=== PATIENT | female | born 1940 | race Caucasian/White ===

== ENCOUNTER 2017-05-04 13:12 | Inpatient (IN) | payer MEDICARE, OTHER ==
[2017-05-04] MEDS ORDERED: Sodium Chloride 0.9% 10 ML Syringe FLUSH PRN (14:14)
[2017-05-04] MEDS ORDERED: Sodium Chloride 0.9% 1,000 ML IV SCH (14:15)
[2017-05-04] MEDS ORDERED: Levofloxacin/Dextrose 5%-Water 750 MG in Premix Bag 1 BAG IV ONE (16:26)
--- NOTE | 2017-05-04 17:01 | EDM.PDOC ---
ED HPI GENERAL MEDICAL PROBLEM - General Chief Complaint: Respiratory Problem Stated Complaint: COUGH/VOMITING/WEAKNESS Time Seen by Provider: 05/04/17 13:38 Source of Information: Reports: Patient History Limitations: Reports: No Limitations - History of Present Illness INITIAL COMMENTS - FREE TEXT/NARRATIVE: The patient presents with a cough and body aches. The patient says this started about 5 days ago. She has a productive cough, fever, chills, body aches and shortness of breath. A couple days ago she had some pain in the RLQ. She vomited and that was better. She has generalized weakness and her joints ache. She did not get her flu shot. She has no abdominal pain now. She has no dysuria. She has a hoarse voice. Onset: Gradual Duration: Day(s): (5) Improves with: Reports: None Worsens with: Reports: None Associated Symptoms: Reports: Cough, Fever/Chills, Nausea/Vomiting, Shortness of Breath. Denies: Headaches Generalized Pain Score (Numeric/FACES): 10 - Related Data Allergies Allergy/AdvReac Type Severity Reaction Status Date / Time No Known Allergies Allergy Verified 05/04/17 13:34 Home Meds: Home Meds Gabapentin [Neurontin] 600 mg PO BID 05/04/17 [History] Levothyroxine [Levothroid] 137 mcg PO DAILY 05/04/17 [History] PARoxetine HCl [Paroxetine HCl] 40 mg PO BEDTIME 05/04/17 [History] Pramipexole Di-HCl [Mirapex] 0.125 mg PO BEDTIME 05/04/17 [History] Rosuvastatin [Crestor] 10 mg PO BEDTIME 05/04/17 [History] Past Medical History Musculoskeletal History: Reports: Osteoarthritis Neurological History: Reports: Neuropathy, Peripheral Endocrine/Metabolic History: Reports: Hypothyroidism - Past Surgical History GI Surgical History: Reports: Appendectomy Social & Family History - Tobacco Use Smoking Status *Q: Never Smoker ED ROS GENERAL - Review of Systems Review Of Systems: See Below Constitutional: Reports: Fever, Chills, Weakness HEENT: Reports: No Symptoms Respiratory: Reports: Shortness of Breath, Cough Cardiovascular: Reports: No Symptoms Endocrine: Reports: No Symptoms GI/Abdominal: Reports: Abdominal Pain, Nausea, Vomiting : Reports: No Symptoms Musculoskeletal: Reports: No Symptoms ED EXAM, GENERAL - Physical Exam Exam: See Below Exam Limited By: No Limitations General Appearance: Alert, No Apparent Distress Ears: Normal External Exam Nose: Normal Inspection Throat/Mouth: Other (Mild erythema) Head: Atraumatic, Normocephalic Neck: Normal Inspection Respiratory/Chest: No Respiratory Distress, Rhonchi Cardiovascular: Regular Rate, Rhythm, No Edema, No Murmur GI/Abdominal: Soft, Non-Tender, No Organomegaly, No Mass Back Exam: Normal Inspection Extremities: Normal Inspection Course - Vital Signs Last Recorded V/S: Last Vital Signs Temp 99.3 F 05/04/17 13:34 Pulse 95 05/04/17 13:34 Resp 22 H 05/04/17 13:34 BP 123/72 05/04/17 13:34 Pulse Ox 97 05/04/17 13:34 - Orders/Labs/Meds Orders: Active Orders 24 hr Category Date Time Status Cardiac Monitoring [RC] . DIRECTED Care 05/04/17 14:14 Active Oxygen Therapy [RC] PRN Care 05/04/17 14:14 Active Peripheral IV Care [RC] . DIRECTED Care 05/04/17 14:15 Active Chest 1V Frontal [CR] Stat Exams 05/04/17 14:15 Taken C-REACTIVE PROTEIN [CHEM] Stat Lab 05/04/17 15:19 Results COMPREHENSIVE METABOLIC PN,CMP [CHEM] Stat Lab 05/04/17 15:19 Results CULTURE STREP A CONFIRMATION [RM] Stat Lab 05/04/17 14:20 Results STREP SCRN A RAPID W CULT CONF [RM] Stat Lab 05/04/17 14:20 Results TROPONIN I [CHEM] Stat Lab 05/04/17 15:19 Results Levofloxacin/Dextrose 5%-Water [Levaquin in D5W 750 MG/ Med 05/04/17 16:26 Active 150 ML] 750 mg Premix Bag 1 bag IV ONETIME Sodium Chloride 0.9% [Normal Saline] 1,000 ml Med 05/04/17 14:15 Active IV ASDIRECTED Sodium Chloride 0.9% [Saline Flush] Med 05/04/17 14:14 Active 10 ml FLUSH ASDIRECTED PRN Peripheral IV Insertion Adult [OM.PC] Stat Oth 05/04/17 14:14 Ordered Medication Orders Sodium Chloride (Normal Saline) 1,000 mls @ 125 mls/hr IV ASDIRECTED BEATRIZ Last Admin: 05/04/17 15:04 Dose: 125 mls/hr Levofloxacin/Dextrose 750 mg/ (Premix) 150 mls @ 100 mls/hr IV ONETIME ONE Stop: 05/04/17 17:55 Last Admin: 05/04/17 16:52 Dose: 100 mls/hr Sodium Chloride (Saline Flush) 10 ml FLUSH ASDIRECTED PRN PRN Reason: Keep Vein Open Last Admin: 05/04/17 15:04 Dose: 10 ml Labs: Laboratory Tests 05/04/17 05/04/17 05/04/17 Range/Units 15:19 15:19 16:21 WBC 14.65 H (3.98-10.04) K/mm3 RBC 3.98 (3.98-5.22) M/mm3 Hgb 12.3 (11.2-15.7) gm/L Hct 36.8 (34.1-44.9) % MCV 92.5 (79.4-94.8) fl MCH 30.9 (25.6-32.2) pg MCHC 33.4 (32.2-35.5) g/dl RDW Std Deviation 41.5 (36.4-46.3) fL Plt Count 233 (182-369) K/mm3 MPV 9.8 (9.4-12.3) fl Neut % (Auto) 81.1 H (34.0-71.1) % Lymph % (Auto) 5.4 L (19.3-51.7) % [place] % (Auto) 12.8 H (4.7-12.5) % Eos % (Auto) 0.5 L (0.7-5.8) Baso % (Auto) 0.1 (0.1-1.2) % Neut # (Auto) 11.88 H (1.56-6.13) K/mm3 Lymph # (Auto) 0.79 L (1.18-3.74) K/mm3 [place] # (Auto) 1.87 H (0.24-0.36) K/mm3 Eos # (Auto) 0.07 (0.04-0.36) K/mm3 Baso # (Auto) 0.02 (0.01-0.08) K/mm3 Manual Slide Review Abnormal smear Sodium 131 L (136-145) mEq/L Potassium 4.0 (3.5-5.1) mEq/L Chloride 98 (98-107) mEq/L Carbon Dioxide 20 L (21-32) mEq/L Anion Gap 17.0 H (5-15) BUN 16 (7-18) mg/dL Creatinine 1.3 H (0.55-1.02) mg/dL Est Cr Clr Drug Dosing 32.85 mL/min Estimated GFR (MDRD) 40 (>60) mL/min BUN/Creatinine Ratio 12.3 L (14-18) Glucose 114 (83-115) mg/dL Calcium 8.8 (8.5-10.1) mg/dL Total Bilirubin 0.6 (0.2-1.0) mg/dL AST 19 (15-37) U/L ALT 12 L (14-59) U/L Alkaline Phosphatase 88 (46-116) U/L Troponin I < 0.017 (0.00-0.056) ng/mL Total Protein 7.4 (6.4-8.2) g/dl Albumin 2.9 L (3.4-5.0) g/dl Globulin 4.5 gm/dL Albumin/Globulin Ratio 0.6 L (1-2) Urine Color Dark yellow (Yellow) Urine Appearance Clear (Clear) Urine pH 6.0 (5.0-8.0) Ur Specific [place] > or = 1.030 (1.005-1.030) Urine Protein 3+ H (Negative) Urine Glucose (UA) Negative (Negative) Urine Ketones 1+ H (Negative) Urine Occult Blood 3+ H (Negative) Urine Nitrite Negative (Negative) Urine Bilirubin 2+ H (Negative) Urine Urobilinogen 0.2 (0.2-1.0) Ur Leukocyte Esterase Negative (Negative) Urine RBC 5-10 H (0-5) /hpf Urine WBC 5-10 H (0-5) /hpf Ur Epithelial Cells 0-5 (0-5) /hpf Urine Bacteria Moderate H (FEW) /hpf Hyaline Casts 10-20 H (0-5) /lpf Urine Mucus Moderate H (FEW) /hpf Meds: Medications Generic Name Dose Route Start Last Admin Trade Name Freq PRN Reason Stop Dose Admin Sodium Chloride 1,000 mls @ 125 mls/hr 05/04/17 14:15 05/04/17 15:04 Normal Saline IV 125 mls/hr ASDIRECTED BEATRIZ Administration Levofloxacin/Dextrose 750 mg/ 150 mls @ 100 mls/hr 05/04/17 16:26 05/04/17 16 :52 Premix IV 05/04/17 17:55 100 mls/hr ONETIME ONE Administration Sodium Chloride 10 ml 05/04/17 14:14 05/04/17 15:04 Saline Flush FLUSH 10 ml ASDIRECTED PRN Administration Keep Vein Open - Re-Assessments/Exams Free Text/Narrative Re-Assessment/Exam: 05/04/17 17:02 I ordered an IV saline lock, labs, UA, CXR, and blood cultures. Her CXR showed a RML infiltrate. Her WBC was elevated at 14.65. Her Na was a little low at 131. Her CO2 was low at 20. Her anion gap was elevated at 17. Her creatinine was elevated at 1.3. Her troponin was negative. It appears she has pneumonia. Her oxygen saturations went down to 87%. My nurse put her on oxygen. I obtained blood cultures and started levaquin 750mg IV. I feel she needs to be admitted. I called Dr Lopez and she agreed to the admission. Departure - Departure Time of Disposition: 17:10 Disposition: Admitted As Inpatient 64 Condition: Fair Clinical Impression: Pneumonia Qualifiers: Pneumonia type: due to unspecified organism Laterality: right Lung location: middle lobe of lung Qualified Code(s): J18.1 - Lobar pneumonia, unspecified organism - Discharge Information Referrals: PCP,None [Primary Care Provider] - - My Orders Last 24 Hours: My Active Orders 05/04/17 14:14 Cardiac Monitoring [RC] . DIRECTED Oxygen Therapy [RC] PRN Sodium Chloride 0.9% [Saline Flush] 10 ml FLUSH ASDIRECTED PRN Peripheral IV Insertion Adult [OM.PC] Stat 05/04/17 14:15 Peripheral IV Care [RC] . DIRECTED Chest 1V Frontal [CR] Stat Sodium Chloride 0.9% [Normal Saline] 1,000 ml IV ASDIRECTED 05/04/17 14:20 CULTURE STREP A CONFIRMATION [RM] Stat STREP SCRN A RAPID W CULT CONF [RM] Stat 05/04/17 15:19 C-REACTIVE PROTEIN [CHEM] Stat COMPREHENSIVE METABOLIC PN,CMP [CHEM] Stat TROPONIN I [CHEM] Stat 05/04/17 16:26 Levofloxacin/Dextrose 5%-Water [Levaquin in D5W 750 MG/150 ML] 750 mg Premix Bag 1 bag IV ONETIME - Assessment/Plan Last 24 Hours: My Active Orders 05/04/17 14:14 Cardiac Monitoring [RC] . DIRECTED Oxygen Therapy [RC] PRN Sodium Chloride 0.9% [Saline Flush] 10 ml FLUSH ASDIRECTED PRN Peripheral IV Insertion Adult [OM.PC] Stat 05/04/17 14:15 Peripheral IV Care [RC] . DIRECTED Chest 1V Frontal [CR] Stat Sodium Chloride 0.9% [Normal Saline] 1,000 ml IV ASDIRECTED 05/04/17 14:20 CULTURE STREP A CONFIRMATION [RM] Stat STREP SCRN A RAPID W CULT CONF [RM] Stat 05/04/17 15:19 C-REACTIVE PROTEIN [CHEM] Stat COMPREHENSIVE METABOLIC PN,CMP [CHEM] Stat TROPONIN I [CHEM] Stat 05/04/17 16:26 Levofloxacin/Dextrose 5%-Water [Levaquin in D5W 750 MG/150 ML] 750 mg Premix Bag 1 bag IV ONETIME
[2017-05-04] MEDS ORDERED: Temazepam 7.5 MG Cap PO PRN (18:33)
[2017-05-04] MEDS ORDERED: Albuterol/Ipratropium 3.0-0.5 MG/3 ML Neb Soln NEB PRN (18:34)
[2017-05-04] MEDS ORDERED: Albuterol 0.083% 2.5 MG/3 ML Neb Soln NEB PRN (18:35)
[2017-05-04] MEDS ORDERED: Codeine/guaiFENesin 100-10 MG/5 ML Syrup 5 ML Cup PO PRN (18:37)
[2017-05-04] MEDS ORDERED: Acetaminophen Soln 650 MG/20.3 ML UD Cup PO PRN (18:40)
[2017-05-04] MEDS ORDERED: Sodium Chloride 0.45% 1,000 ML IV SCH (18:45)
--- NOTE | 2017-05-04 19:05 | PCM.HP ---
H&P History of Present Illness - General Date of Service: 05/04/17 Admit Problem/Dx: Admission Diagnosis/Problem Admission Diagnosis/Problem Pneumonia Source of Information: Patient, Provider History Limitations: Reports: No Limitations - History of Present Illness Initial Comments - Free Text/Narative: 77 year old female began to experience constitutional symptoms 5 days prior to admission. She has had body aches and a productive cough. There have been no sick contacts. Additionally the patient had RUQ 1-2 days ago which has resolved. Laboratory studies document elevated WBCs, hyponatremia as well as a concentrated urine with a sp gr 1.030. CXR shows a RML infiltrate, saturation by pulse oximetry, 87% on room air. Onset of Symptoms: Reports: Gradual Symptom Onset Date: 04/29/17 Duration of Symptoms: Reports: Day(s):, Getting Worse Location: Reports: Chest, Generalized Severity: Moderate Improves with: Reports: Medication Worsens with: Reports: None Associated Symptoms: Reports: cough w sputum, Malaise, Nausea/Vomiting, Shortness of Breath, Weakness Generalized Pain Score (Numeric/FACES): 10 - Related Data Allergies/Adverse Reactions: Allergies Allergy/AdvReac Type Severity Reaction Status Date / Time No Known Allergies Allergy Verified 05/04/17 13:34 Home Medications: Home Meds Gabapentin [Neurontin] 600 mg PO BID 05/04/17 [History] Levothyroxine [Levothroid] 137 mcg PO DAILY 05/04/17 [History] PARoxetine HCl [Paroxetine HCl] 40 mg PO BEDTIME 05/04/17 [History] Pramipexole Di-HCl [Mirapex] 0.125 mg PO BEDTIME 05/04/17 [History] Rosuvastatin [Crestor] 10 mg PO BEDTIME 05/04/17 [History] Past Medical History HEENT History: Reports: Cataract Gastrointestinal History: Reports: None 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 OB/BYN History: hysterectomy Musculoskeletal History: Reports: Osteoarthritis Neurological History: Reports: Neuropathy, Peripheral, TIA Endocrine/Metabolic History: Reports: Hypothyroidism - Infectious Disease History Infectious Disease History: Reports: Chicken Pox, MRSA, Shingles - Past Surgical History HEENT Surgical History: Reports: Cataract Surgery GI Surgical History: Reports: Appendectomy, Other (See Below) Other GI Surgeries/Procedures: stomach ulcers taken out Endocrine Surgical History: Reports: None Musculoskeletal Surgical History: Reports: Knee Replacement, Shoulder Replacement, Shoulder Surgery, Other (See Below) Other Musculoskeletal Surgeries/Procedures:: Elbow, Neck, Back Social & Family History - Family History Cardiac: Reports: CT Respiratory: Reports: Asthma OBGYN: Reports: Musculoskeletal: Reports: Osteoporosis Oncologic: Reports: Bladder - Tobacco Use Smoking Status *Q: Never Smoker Second Hand Smoke Exposure: No - Caffeine Use Caffeine Use: Reports: Coffee, Energy Drinks, Soda, Tea Caffeine Use Comment: not often for all - Recreational Drug Use Recreational Drug Use: No H&P Review of Systems - Review of Systems: Review Of Systems: See Below General: Reports: Fever, Chills, Malaise, Weakness, Fatigue HEENT: Reports: Sore Throat Pulmonary: Reports: Cough, Sputum Cardiovascular: Reports: No Symptoms Gastrointestinal: Reports: Nausea Genitourinary: Reports: No Symptoms Musculoskeletal: Reports: No Symptoms Skin: Reports: No Symptoms Psychiatric: Reports: No Symptoms Neurological: Reports: No Symptoms Hematologic/Lymphatic: Reports: No Symptoms Immunologic: Reports: No Symptoms Exam - Exam Exam: See Below - Vital Signs Vital Signs: Last Vital Signs Temp 37.4 C 05/04/17 13:34 Pulse 95 05/04/17 13:34 Resp 22 H 05/04/17 13:34 BP 123/72 05/04/17 13:34 Pulse Ox 95 05/04/17 18:23 Weight: 66.27 kg - Exam Quality Assessment: Supplemental Oxygen General: Alert, Oriented, Cooperative HEENT: Conjunctiva Clear, EOMI, Nares Patent, Normal Nasal Septum, Pupils Equal , Pupils Reactive, PERRLA Neck: Supple, Trachea Midline Lungs: Normal Respiratory Effort, Decreased Breath Sounds, Wheezing Cardiovascular: Regular Rate GI/Abdominal Exam: Normal Bowel Sounds, Soft, Non-Tender, No Organomegaly, No Distention (Female) Exam: Deferred Rectal (Female) Exam: Deferred Back Exam: Normal Inspection Extremities: Normal Inspection, Pedal Edema, Arm Pain Skin: Warm Neurological: Cranial Nerves Intact, Normal Speech Neuro Extensive - Mental Status: Alert, Oriented x3, Normal Mood/Affect, Normal Cognition, Memory Intact Neuro Extensive - Motor, Sensory, Reflexes: CN II-XII Intact Psychiatric: Alert, Normal Affect, Normal Mood - Patient Data Result Diagrams: 05/05/17 05:46 05/05/17 05:46 *Q Meaningful Use (ADM) - VTE *Q VTE Criteria *Q: - Stroke *Q Stroke Criteria *Q: - AMI *Q AMI Criteria *Q: - Problem List (1) Hypothyroid SNOMED Code(s): 54578029 ICD Code: E03.9 - HYPOTHYROIDISM, UNSPECIFIED Status: Acute Current Visit : Yes (2) Hyperlipidemia SNOMED Code(s): 47672717 ICD Code: E78.5 - HYPERLIPIDEMIA, UNSPECIFIED Status: Acute Current Visit : Yes (3) Pneumonia SNOMED Code(s): 923988680 ICD Code: J18.9 - PNEUMONIA, UNSPECIFIED ORGANISM Status: Acute Current Visit: Yes Qualifiers: Pneumonia type: due to unspecified organism Laterality: right Lung location: middle lobe of lung Qualified Code(s): J18.1 - Lobar pneumonia, unspecified organism Problem List Initiated/Reviewed/Updated: Yes Orders Last 24hrs: Active Orders 24 hr Category Date Time Status Activity as Tolerated [RC] .Routine Care 05/04/17 18:45 Active Antiembolic Devices [RC] PER UNIT ROUTINE Care 05/04/17 18:53 Active RT Aerosol Therapy [RC] ASDIRECTED Care 05/04/17 18:34 Active Consult to Occupational Therapy [OT Evaluation and Cons 05/06/17 09:00 Active Treatment] [CONS] Routine Consult to [employer] [CONS] Routine Cons 05/04/17 18:54 Active PT Evaluation and Treatment [CONS] Routine Cons 05/04/17 18:54 Active Heart Healthy Diet [DIET] Diet 05/05/17 Breakfast Active CXR [Chest 2V] [CR] Routine Exams 05/06/17 09:00 Ordered BMP [BASIC METABOLIC PANEL,BMP] [CHEM] DAILY Lab 05/05/17 05:00 Ordered BMP [BASIC METABOLIC PANEL,BMP] [CHEM] DAILY Lab 05/06/17 05:00 Ordered BMP [BASIC METABOLIC PANEL,BMP] [CHEM] DAILY Lab 05/07/17 05:00 Ordered BMP [BASIC METABOLIC PANEL,BMP] [CHEM] DAILY Lab 05/08/17 05:00 Ordered CBC WITH AUTO DIFF [HEME] DAILY Lab 05/05/17 05:00 Ordered CBC WITH AUTO DIFF [HEME] DAILY Lab 05/06/17 05:00 Ordered CBC WITH AUTO DIFF [HEME] DAILY Lab 05/07/17 05:00 Ordered CBC WITH AUTO DIFF [HEME] DAILY Lab 05/08/17 05:00 Ordered CRP [C-REACTIVE PROTEIN] [CHEM] DAILY Lab 05/05/17 05:00 Ordered CRP [C-REACTIVE PROTEIN] [CHEM] DAILY Lab 05/06/17 05:00 Ordered CRP [C-REACTIVE PROTEIN] [CHEM] DAILY Lab 05/07/17 05:00 Ordered CRP [C-REACTIVE PROTEIN] [CHEM] DAILY Lab 05/08/17 05:00 Ordered CULTURE SPUTUM + SMEAR [RM] Routine Lab 05/04/17 18:33 Uncollected MAGNESIUM [CHEM] DAILY Lab 05/05/17 05:00 Ordered MAGNESIUM [CHEM] DAILY Lab 05/06/17 05:00 Ordered MAGNESIUM [CHEM] DAILY Lab 05/07/17 05:00 Ordered MAGNESIUM [CHEM] DAILY Lab 05/08/17 05:00 Ordered MYCOPLASMA PNEUMONIAE IGM AB [CHEM] Routine Lab 05/05/17 05:00 Ordered RESPIRATORY PANEL BY PCR [MREF] Routine Lab 05/04/17 18:22 Uncollected STREP PNEUMONIAE ANTIGEN [MREF] Routine Lab 05/04/17 18:22 Uncollected Acetaminophen [Tylenol] Med 05/04/17 18:40 Active 650 mg PO Q6H PRN Albuterol [Proventil Neb Soln] Med 05/04/17 18:35 Active 2.5 mg NEB Q4HRRT PRN Albuterol/Ipratropium [DuoNeb 3.0-0.5 MG/3 ML] Med 05/04/17 18:34 Active 3 ml NEB QID PRN Azithromycin [Zithromax] 500 mg Med 05/05/17 13:00 Active Sodium Chloride 0.9% [Normal Saline] 250 ml IV Q24H Benzonatate [Tessalon Perles] Med 05/04/17 21:00 Active 200 mg PO BID Codeine/guaiFENesin [Robitussin AC] Med 05/04/17 18:37 Active 10 ml PO Q6H PRN FLU Vacc [id number](65YR UP)/PF [Fluzone High-Dose 2017- Med 05/05/17 10:00 Once 18] 180 mcg IM .ONCE ONE Gabapentin [Neurontin] Med 05/04/17 21:00 Active 600 mg PO BID Levothyroxine [Levothroid] Med 05/05/17 09:00 Active 137 mcg PO DAILY PARoxetine [Paxil] Med 05/04/17 21:00 Active 40 mg PO BEDTIME Pramipexole [Mirapex] Med 05/04/17 21:00 Active 0.125 mg PO BEDTIME Rosuvastatin [Crestor] Med 05/04/17 21:00 Active 10 mg PO BEDTIME Saccharomyces Boulardii [Florastor] Med 05/05/17 09:00 Active 250 mg PO DAILY Sodium Chloride 0.45% 1,000 ml Med 05/04/17 18:45 Active IV ASDIRECTED Sodium Chloride 0.45% 1,000 ml Med 05/04/17 23:01 Active IV ASDIRECTED Temazepam [Restoril] Med 05/04/17 18:33 Active 7.5 mg PO BEDTIME PRN cefTRIAXone [Rocephin] 2 gm Med 05/05/17 08:00 Active Sodium Chloride 0.9% [Normal Saline] 100 ml IV Q24H СВЕТЛАНА Hose [Antiembolic Hose] [OM.PC] Routine Oth 05/04/17 18:53 Ordered Code Status [Resuscitation Status] Routine Resus Stat 05/04/17 18:45 Ordered Medication Orders Acetaminophen (Tylenol) 650 mg PO Q6H PRN PRN Reason: Fever Albuterol (Proventil Neb Soln) 2.5 mg NEB Q4HRRT PRN PRN Reason: Shortness of Breath Albuterol/Ipratropium (Duoneb 3.0-0.5 Mg/3 Ml) 3 ml NEB QID PRN PRN Reason: Shortness of Breath Benzonatate (Tessalon Perles) 200 mg PO BID BEATRIZ Gabapentin (Neurontin) 600 mg PO BID BEATRIZ Guaifenesin/Codeine Phosphate (Robitussin Ac) 10 ml PO Q6H PRN PRN Reason: Cough Sodium Chloride (Normal Saline) 1,000 mls @ 125 mls/hr IV ASDIRECTED PENDING SALE TO [facility] Last Admin: 05/04/17 15:04 Dose: 125 mls/hr Sodium Chloride (Sodium Chloride 0.45%) 1,000 mls @ 150 mls/hr IV ASDIRECTED BEATRIZ Stop: 05/04/17 23:00 Azithromycin 500 mg/ Sodium (Chloride) 250 mls @ 250 mls/hr IV Q24H PENDING SALE TO [facility] Ceftriaxone Sodium 2 gm/ (Sodium Chloride) 100 mls @ 200 mls/hr IV Q24H BEATRIZ Sodium Chloride (Sodium Chloride 0.45%) 1,000 mls @ 100 mls/hr IV ASDIRECTED BEATRIZ Influenza Virus Vaccine (Fluzone High-Dose ) 180 mcg IM .ONCE ONE Stop: 05/05/17 10:01 Levothyroxine Sodium (Levothroid) 137 mcg PO DAILY BEATRIZ Paroxetine HCl (Paxil) 40 mg PO BEDTIME BEATRIZ Pramipexole Dihydrochloride (Mirapex) 0.125 mg PO BEDTIME BEATRIZ Rosuvastatin Calcium (Crestor) 10 mg PO BEDTIME BEATRIZ Saccharomyces Boulardii (Florastor) 250 mg PO DAILY BEATRIZ Sodium Chloride (Saline Flush) 10 ml FLUSH ASDIRECTED PRN PRN Reason: Keep Vein Open Last Admin: 05/04/17 15:04 Dose: 10 ml Temazepam (Restoril) 7.5 mg PO BEDTIME PRN PRN Reason: Insomnia Assessment/Plan Comment:: Impression: CAP with hypoxia Leukocytosis Hyponatremia Chronic HLD Hypothyroidism Plan: IVF Home meds PNA work up Daily labs Nebs SW/PT/OT DVT/GI prophylaxis
[2017-05-04] MEDS ORDERED: Ondansetron 4 MG/2 ML SDV IVPUSH PRN (20:43)
[2017-05-04] MEDS: Pramipexole 0.25 MG Tab PO SCH (21:45)
[2017-05-04] MEDS: Rosuvastatin 10 MG Tab PO SCH (21:45)
[2017-05-04] MEDS: Benzonatate 100 MG Cap PO SCH (21:45)
[2017-05-04] MEDS: Gabapentin 600 MG Tab PO SCH (21:45)
[2017-05-04] MEDS: PARoxetine 20 MG Tab PO SCH (21:45)
[2017-05-04] MEDS ORDERED: Acetaminophen Susp 325 MG/10.15 ML UD Cup PO PRN (21:54)
[2017-05-04] MEDS ORDERED: Calcium Carbonate 500 MG Tab.Chew PO ONE (22:04)
[2017-05-04] MEDS: Acetaminophen 325 MG Tab PO PRN (22:42)
[2017-05-05] MEDS: Sodium Chloride 0.45% 1,000 ML IV SCH ×2 (03:44→14:44)
[2017-05-05] MEDS: Benzonatate 100 MG Cap PO SCH ×2 (08:40→20:47)
[2017-05-05] MEDS: cefTRIAXone 2 GM in Sodium Chloride 0.9% 100 ML IV SCH (08:40)
[2017-05-05] MEDS: Saccharomyces Boulardii (Probiotic) 250 MG Cap PO SCH (08:40)
[2017-05-05] MEDS: Gabapentin 600 MG Tab PO SCH ×2 (08:40→20:47)
[2017-05-05] MEDS ORDERED: FLU Vacc TS 2017-18 (65yr UP)/PF 180 MCG/0.5 ML Syringe IM ONE (10:00)
[2017-05-05] MEDS ORDERED: Magnesium Sulfate/Water 2 GM in Premix Bag 1 BAG IV ONE (10:52)
[2017-05-05] MEDS: Azithromycin 500 MG in Sodium Chloride 0.9% 250 ML IV SCH (14:35)
[2017-05-05] MEDS: Acetaminophen 325 MG Tab PO PRN (14:57)
--- NOTE | 2017-05-05 16:33 | PCM.PN ---
- General Info Date of Service: 05/05/17 Functional Status: Reports: Tolerating Diet, Ambulating, Urinating - Review of Systems General: Reports: Weakness, Malaise HEENT: Reports: No Symptoms Pulmonary: Reports: No Symptoms Cardiovascular: Reports: No Symptoms Gastrointestinal: Reports: No Symptoms Genitourinary: Reports: No Symptoms Musculoskeletal: Reports: No Symptoms Skin: Reports: No Symptoms Neurological: Reports: No Symptoms Psychiatric: Reports: No Symptoms - Patient Data Vitals - Most Recent: Last Vital Signs Temp 37.0 C 05/05/17 15:10 Pulse 96 05/05/17 15:10 Resp 16 05/05/17 15:10 BP 126/79 05/05/17 15:10 Pulse Ox 96 05/05/17 15:10 Weight - Most Recent: 66.27 kg I&O - Last 24 Hours: Intake & Output 05/05/17 05/05/17 05/05/17 06:59 14:59 22:59 Intake Total 2094 0 2286 Output Total 400 Balance 1694 0 2286 Lab Results Last 24 Hours: Laboratory Results - last 24 hr 05/04/17 05/04/17 05/05/17 Range/Units 18:50 19:45 05:46 WBC 13.36 H (3.98-10.04) K/mm3 RBC 3.42 L (3.98-5.22) M/mm3 Hgb 10.7 L (11.2-15.7) gm/L Hct 31.7 L (34.1-44.9) % MCV 92.7 (79.4-94.8) fl MCH 31.3 (25.6-32.2) pg MCHC 33.8 (32.2-35.5) g/dl RDW Std Deviation 41.1 (36.4-46.3) fL Plt Count 222 (182-369) K/mm3 MPV 9.9 (9.4-12.3) fl Neut % (Auto) 77.3 H (34.0-71.1) % Lymph % (Auto) 7.0 L (19.3-51.7) % [place] % (Auto) 14.9 H (4.7-12.5) % Eos % (Auto) 0.4 L (0.7-5.8) Baso % (Auto) 0.2 (0.1-1.2) % Neut # (Auto) 10.32 H (1.56-6.13) K/mm3 Lymph # (Auto) 0.94 L (1.18-3.74) K/mm3 [place] # (Auto) 1.99 H (0.24-0.36) K/mm3 Eos # (Auto) 0.05 (0.04-0.36) K/mm3 Baso # (Auto) 0.03 (0.01-0.08) K/mm3 Manual Slide Review Abnormal smear Sodium (136-145) mEq/L Potassium (3.5-5.1) mEq/L Chloride (98-107) mEq/L Carbon Dioxide (21-32) mEq/L Anion Gap (5-15) BUN (7-18) mg/dL Creatinine (0.55-1.02) mg/dL Est Cr Clr Drug Dosing mL/min Estimated GFR (MDRD) (>60) mL/min BUN/Creatinine Ratio (14-18) Glucose (83-115) mg/dL Lactic Acid (0.4-2.0) mmol/L Calcium (8.5-10.1) mg/dL Magnesium (1.8-2.4) mg/dl C-Reactive Protein (<1.0) mg/dL C.difficile [id number] Presumptive negative C. difficile Tox (PCR) Negative Mycoplasma pneumon IgM (NEGATIVE) MRSA (PCR) Negative 05/05/17 05/05/17 Range/Units 05:46 05:46 WBC (3.98-10.04) K/mm3 RBC (3.98-5.22) M/mm3 Hgb (11.2-15.7) gm/L Hct (34.1-44.9) % MCV (79.4-94.8) fl MCH (25.6-32.2) pg MCHC (32.2-35.5) g/dl RDW Std Deviation (36.4-46.3) fL Plt Count (182-369) K/mm3 MPV (9.4-12.3) fl Neut % (Auto) (34.0-71.1) % Lymph % (Auto) (19.3-51.7) % [place] % (Auto) (4.7-12.5) % Eos % (Auto) (0.7-5.8) Baso % (Auto) (0.1-1.2) % Neut # (Auto) (1.56-6.13) K/mm3 Lymph # (Auto) (1.18-3.74) K/mm3 [place] # (Auto) (0.24-0.36) K/mm3 Eos # (Auto) (0.04-0.36) K/mm3 Baso # (Auto) (0.01-0.08) K/mm3 Manual Slide Review Sodium 135 L (136-145) mEq/L Potassium 3.6 (3.5-5.1) mEq/L Chloride 103 (98-107) mEq/L Carbon Dioxide 21 (21-32) mEq/L Anion Gap 14.6 (5-15) BUN 14 (7-18) mg/dL Creatinine 1.1 H (0.55-1.02) mg/dL Est Cr Clr Drug Dosing 40.33 mL/min Estimated GFR (MDRD) 48 (>60) mL/min BUN/Creatinine Ratio 12.7 L (14-18) Glucose 102 (83-115) mg/dL Lactic Acid 0.8 (0.4-2.0) mmol/L Calcium 8.8 (8.5-10.1) mg/dL Magnesium 1.7 L (1.8-2.4) mg/dl C-Reactive Protein 32.0 H* (<1.0) mg/dL C.difficile [id number] C. difficile Tox (PCR) Mycoplasma pneumon IgM Negative (NEGATIVE) MRSA (PCR) Med Orders - Current: Current Medications Acetaminophen (Tylenol) 650 mg PO Q6H PRN PRN Reason: Fever Last Admin: 05/05/17 14:57 Dose: 650 mg Albuterol (Proventil Neb Soln) 2.5 mg NEB Q4HRRT PRN PRN Reason: Shortness of Breath Albuterol/Ipratropium (Duoneb 3.0-0.5 Mg/3 Ml) 3 ml NEB QID PRN PRN Reason: Shortness of Breath Benzonatate (Tessalon Perles) 200 mg PO BID [facility] Last Admin: 05/05/17 08:40 Dose: 200 mg Gabapentin (Neurontin) 600 mg PO BID [facility] Last Admin: 05/05/17 08:40 Dose: 600 mg Guaifenesin/Codeine Phosphate (Robitussin Ac) 10 ml PO Q6H PRN PRN Reason: Cough Last Admin: 05/04/17 19:38 Dose: 10 ml Azithromycin 500 mg/ Sodium (Chloride) 250 mls @ 250 mls/hr IV Q24H [facility] Last Admin: 05/05/17 14:35 Dose: 250 mls/hr Ceftriaxone Sodium 2 gm/ (Sodium Chloride) 100 mls @ 200 mls/hr IV Q24H [facility] Last Admin: 05/05/17 08:40 Dose: 200 mls/hr Sodium Chloride (Sodium Chloride 0.45%) 1,000 mls @ 100 mls/hr IV ASDIRECTED [facility] Last Admin: 05/05/17 14:44 Dose: 100 mls/hr Levothyroxine Sodium (Levothroid) 137 mcg PO DAILY [facility] Last Admin: 05/05/17 11:00 Dose: 137 mcg Ondansetron HCl (Zofran) 4 mg IVPUSH Q4H PRN PRN Reason: nausea/vomitting Paroxetine HCl (Paxil) 40 mg PO BEDTIME [facility] Last Admin: 05/04/17 21:45 Dose: 40 mg Pramipexole Dihydrochloride (Mirapex) 0.125 mg PO BEDTIME [facility] Last Admin: 05/04/17 21:45 Dose: 0.125 mg Rosuvastatin Calcium (Crestor) 10 mg PO BEDTIME [facility] Last Admin: 05/04/17 21:45 Dose: 10 mg Saccharomyces Boulardii (Florastor) 250 mg PO DAILY [facility] Last Admin: 05/05/17 08:40 Dose: 250 mg Sodium Chloride (Saline Flush) 10 ml FLUSH ASDIRECTED PRN PRN Reason: Keep Vein Open Last Admin: 05/04/17 15:04 Dose: 10 ml Temazepam (Restoril) 7.5 mg PO BEDTIME PRN PRN Reason: Insomnia Discontinued Medications Acetaminophen (Tylenol Solution) 650 mg PO Q6H PRN PRN Reason: Fever Calcium Carbonate/Glycine (Tums) 1,000 mg PO ONETIME ONE Stop: 05/04/17 22:05 Last Admin: 05/04/17 22:43 Dose: 1,000 mg Sodium Chloride (Normal Saline) 1,000 mls @ 125 mls/hr IV ASDIRECTED [facility] Last Admin: 05/04/17 15:04 Dose: 125 mls/hr Levofloxacin/Dextrose 750 mg/ (Premix) 150 mls @ 100 mls/hr IV ONETIME ONE Stop: 05/04/17 17:55 Last Admin: 05/04/17 16:52 Dose: 100 mls/hr Sodium Chloride (Sodium Chloride 0.45%) 1,000 mls @ 150 mls/hr IV ASDIRECTED [facility] Stop: 05/04/17 23:00 Last Admin: 05/04/17 19:43 Dose: 150 mls/hr Magnesium Sulfate 2 gm/ Premix 50 mls @ 25 mls/hr IV ONETIME ONE Stop: 05/05/17 12:51 Last Admin: 05/05/17 12:02 Dose: 25 mls/hr Influenza Virus Vaccine (Pharmacy To Dose - Influenza Vaccine) 1 each IM ONETIME ONE Stop: 05/04/17 18:23 Influenza Virus Vaccine (Fluzone High-Dose ) 180 mcg IM .ONCE ONE Stop: 05/05/17 10:01 - Exam Quality Assessment: Supplemental Oxygen, DVT Prophylaxis General: Alert, Oriented, Cooperative HEENT: Pupils Equal, Pupils Reactive, EOMI Neck: Supple, Trachea Midline Lungs: Normal Respiratory Effort, Decreased Breath Sounds Cardiovascular: Regular Rate, Regular Rhythm GI/Abdominal Exam: Normal Bowel Sounds, Soft, Non-Tender, No Organomegaly, No Distention (Female) Exam: Deferred Back Exam: Normal Inspection Extremities: Normal Inspection Skin: Warm Neurological: No New Focal Deficit Psy/Mental Status: Alert, Normal Affect, Normal Mood - Problem List & Annotations (1) Hypothyroid SNOMED Code(s): 03923505 Code(s): E03.9 - HYPOTHYROIDISM, UNSPECIFIED Status: Acute Current Visit : Yes (2) Hyperlipidemia SNOMED Code(s): 47990211 Code(s): E78.5 - HYPERLIPIDEMIA, UNSPECIFIED Status: Acute Current Visit : Yes (3) Pneumonia SNOMED Code(s): 029242174 Code(s): J18.9 - PNEUMONIA, UNSPECIFIED ORGANISM Status: Acute Current Visit: Yes Qualifiers: Pneumonia type: due to unspecified organism Laterality: right Lung location: middle lobe of lung Qualified Code(s): J18.1 - Lobar pneumonia, unspecified organism - Problem List Review Problem List Initiated/Reviewed/Updated: Yes - My Orders Last 24 Hours: My Active Orders 05/04/17 15:50 RESPIRATORY PANEL BY PCR [MREF] Stat 05/04/17 16:21 STREP PNEUMONIAE ANTIGEN [MREF] Routine 05/04/17 18:33 CULTURE SPUTUM + SMEAR [RM] Routine Temazepam [Restoril] 7.5 mg PO BEDTIME PRN 05/04/17 18:34 RT Aerosol Therapy [RC] ASDIRECTED Albuterol/Ipratropium [DuoNeb 3.0-0.5 MG/3 ML] 3 ml NEB QID PRN 05/04/17 18:35 Albuterol [Proventil Neb Soln] 2.5 mg NEB Q4HRRT PRN 05/04/17 18:37 Codeine/guaiFENesin [Robitussin AC] 10 ml PO Q6H PRN 05/04/17 18:45 Activity as Tolerated [RC] .Routine Code Status [Resuscitation Status] Routine 05/04/17 18:50 RESPIRATORY PANEL BY PCR [MREF] Routine 05/04/17 18:53 Antiembolic Devices [RC] СВЕТЛАНА Hose [Antiembolic Hose] [OM.PC] Routine 05/04/17 18:54 Consult to [employer] Service Technician [CONS] Routine PT Evaluation and Treatment [CONS] Routine 05/04/17 20:43 Ondansetron [Zofran] 4 mg IVPUSH Q4H PRN 05/04/17 21:00 Benzonatate [Tessalon Perles] 200 mg PO BID Gabapentin [Neurontin] 600 mg PO BID PARoxetine [Paxil] 40 mg PO BEDTIME Pramipexole [Mirapex] 0.125 mg PO BEDTIME Rosuvastatin [Crestor] 10 mg PO BEDTIME 05/04/17 22:09 Acetaminophen [Tylenol] 650 mg PO Q6H PRN 05/04/17 23:01 Sodium Chloride 0.45% 1,000 ml IV ASDIRECTED 05/05/17 08:00 cefTRIAXone [Rocephin] 2 gm Sodium Chloride 0.9% [Normal Saline] 100 ml IV Q24H 05/05/17 09:00 Levothyroxine [Levothroid] 137 mcg PO DAILY Saccharomyces Boulardii [Florastor] 250 mg PO DAILY 05/05/17 13:00 Azithromycin [Zithromax] 500 mg Sodium Chloride 0.9% [Normal Saline] 250 ml IV Q24H 05/05/17 Breakfast Heart Healthy Diet [DIET] 05/06/17 05:00 BMP [BASIC METABOLIC PANEL,BMP] [CHEM] DAILY CBC WITH AUTO DIFF [HEME] DAILY CRP [C-REACTIVE PROTEIN] [CHEM] DAILY MAGNESIUM [CHEM] DAILY 05/06/17 09:00 Consult to Occupational Therapy [OT Evaluation and Treatment] [CONS] Routine CXR [Chest 2V] [CR] Routine 05/07/17 05:00 BMP [BASIC METABOLIC PANEL,BMP] [CHEM] DAILY CBC WITH AUTO DIFF [HEME] DAILY CRP [C-REACTIVE PROTEIN] [CHEM] DAILY MAGNESIUM [CHEM] DAILY 05/08/17 05:00 BMP [BASIC METABOLIC PANEL,BMP] [CHEM] DAILY CBC WITH AUTO DIFF [HEME] DAILY CRP [C-REACTIVE PROTEIN] [CHEM] DAILY MAGNESIUM [CHEM] DAILY - Plan Plan:: Impression: CAP with hypoxia Leukocytosis Hyponatremia Chronic HLD Hypothyroidism Plan: IVF Home meds PNA work up Daily labs Nebs SW/PT/OT DVT/GI prophylaxis
[2017-05-05] MEDS: Rosuvastatin 10 MG Tab PO SCH (20:47)
[2017-05-05] MEDS: PARoxetine 20 MG Tab PO SCH (20:47)
[2017-05-05] MEDS: Pramipexole 0.25 MG Tab PO SCH (20:47)
[2017-05-06] MEDS: Sodium Chloride 0.45% 1,000 ML IV SCH ×3 (00:16→22:11)
[2017-05-06] MEDS: Acetaminophen 325 MG Tab PO PRN (00:17)
[2017-05-06] MEDS: cefTRIAXone 2 GM in Sodium Chloride 0.9% 100 ML IV SCH (09:53)
[2017-05-06] MEDS: Gabapentin 600 MG Tab PO SCH ×2 (10:02→22:14)
[2017-05-06] MEDS: Benzonatate 100 MG Cap PO SCH ×2 (10:02→22:15)
[2017-05-06] MEDS: Saccharomyces Boulardii (Probiotic) 250 MG Cap PO SCH (10:02)
--- NOTE | 2017-05-06 11:49 | CR ---
Chest: Two views of the chest are obtained. Comparison: No prior study. Heart size and mediastinum are normal. Perihilar markings are mildly increased. Lungs otherwise are clear. Right shoulder prosthesis is seen. Scoliosis is noted within the spine with mild degenerative change also seen within the spine. Impression: 1. Increased perihilar interstitial change. Findings could be chronic versus bronchitis. 2. Other incidental findings. Diagnostic code #3
[2017-05-06] MEDS: Azithromycin 500 MG in Sodium Chloride 0.9% 250 ML IV SCH (14:00)
[2017-05-06] MEDS: Benzocaine/Cetylpyridinium/Menthol Lozenge MUCMEM PRN (15:50)
--- NOTE | 2017-05-06 17:25 | PCM.PN ---
- General Info Date of Service: 05/06/17 Functional Status: Reports: Tolerating Diet, Ambulating, Urinating - Review of Systems General: Reports: Weakness (improved) HEENT: Reports: No Symptoms Pulmonary: Reports: Shortness of Breath (decreased) Cardiovascular: Reports: No Symptoms Gastrointestinal: Reports: No Symptoms Genitourinary: Reports: No Symptoms Musculoskeletal: Reports: No Symptoms Skin: Reports: No Symptoms Neurological: Reports: Trouble Speaking (improved, decreased hoarseness) Psychiatric: Reports: No Symptoms - Patient Data Vitals - Most Recent: Last Vital Signs Temp 37.1 C 05/06/17 11:19 Pulse 93 05/06/17 14:01 Resp 17 05/06/17 11:19 BP 138/70 05/06/17 11:19 Pulse Ox 97 05/06/17 14:01 Weight - Most Recent: 66.134 kg I&O - Last 24 Hours: Intake & Output 05/06/17 05/06/17 05/06/17 06:59 14:59 22:59 Intake Total 2155 0 0 Output Total 1300 Balance 855 0 0 Lab Results Last 24 Hours: Laboratory Results - last 24 hr 05/06/17 05/06/17 Range/Units 06:10 06:10 WBC 11.40 H (3.98-10.04) K/mm3 RBC 3.34 L (3.98-5.22) M/mm3 Hgb 10.2 L (11.2-15.7) gm/L Hct 30.9 L (34.1-44.9) % MCV 92.5 (79.4-94.8) fl MCH 30.5 (25.6-32.2) pg MCHC 33.0 (32.2-35.5) g/dl RDW Std Deviation 41.4 (36.4-46.3) fL Plt Count 276 (182-369) K/mm3 MPV 9.7 (9.4-12.3) fl Neut % (Auto) 72.9 H (34.0-71.1) % Lymph % (Auto) 9.2 L (19.3-51.7) % [place] % (Auto) 15.0 H (4.7-12.5) % Eos % (Auto) 2.4 (0.7-5.8) Baso % (Auto) 0.2 (0.1-1.2) % Neut # (Auto) 8.32 H (1.56-6.13) K/mm3 Lymph # (Auto) 1.05 L (1.18-3.74) K/mm3 [place] # (Auto) 1.71 H (0.24-0.36) K/mm3 Eos # (Auto) 0.27 (0.04-0.36) K/mm3 Baso # (Auto) 0.02 (0.01-0.08) K/mm3 Manual Slide Review Abnormal smear Sodium 138 (136-145) mEq/L Potassium 3.3 L (3.5-5.1) mEq/L Chloride 106 (98-107) mEq/L Carbon Dioxide 23 (21-32) mEq/L Anion Gap 12.3 (5-15) BUN 9 (7-18) mg/dL Creatinine 1.1 H (0.55-1.02) mg/dL Est Cr Clr Drug Dosing 40.33 mL/min Estimated GFR (MDRD) 48 (>60) mL/min BUN/Creatinine Ratio 8.2 L (14-18) Glucose 114 (83-115) mg/dL Calcium 8.9 (8.5-10.1) mg/dL Magnesium 2.0 (1.8-2.4) mg/dl C-Reactive Protein 23.7 H* (<1.0) mg/dL Med Orders - Current: Current Medications Acetaminophen (Tylenol) 650 mg PO Q6H PRN PRN Reason: Fever Last Admin: 05/06/17 00:17 Dose: 650 mg Albuterol (Proventil Neb Soln) 2.5 mg NEB Q4HRRT PRN PRN Reason: Shortness of Breath Albuterol/Ipratropium (Duoneb 3.0-0.5 Mg/3 Ml) 3 ml NEB QID PRN PRN Reason: Shortness of Breath Benzocaine/Menthol (Cepacol Sore Throat) 1 lozenge MUCMEM Q2HR PRN PRN Reason: throat irritation Last Admin: 05/06/17 15:50 Dose: 1 lozenge Benzonatate (Tessalon Perles) 200 mg PO BID [facility] Last Admin: 05/06/17 10:02 Dose: 200 mg Ceftriaxone Sodium (Rocephin) 2 gm IVPUSH Q24H [facility] Gabapentin (Neurontin) 600 mg PO BID [facility] Last Admin: 05/06/17 10:02 Dose: 600 mg Guaifenesin/Codeine Phosphate (Robitussin Ac) 10 ml PO Q6H PRN PRN Reason: Cough Last Admin: 05/04/17 19:38 Dose: 10 ml Azithromycin 500 mg/ Sodium (Chloride) 250 mls @ 250 mls/hr IV Q24H [facility] Last Admin: 05/06/17 14:00 Dose: 250 mls/hr Sodium Chloride (Sodium Chloride 0.45%) 1,000 mls @ 100 mls/hr IV ASDIRECTED [facility] Last Admin: 05/06/17 11:45 Dose: 100 mls/hr Levothyroxine Sodium (Levothroid) 137 mcg PO ACBREAKFAST [facility] Last Admin: 05/06/17 11:36 Dose: 137 mcg Ondansetron HCl (Zofran) 4 mg IVPUSH Q4H PRN PRN Reason: nausea/vomitting Paroxetine HCl (Paxil) 40 mg PO BEDTIME [facility] Last Admin: 05/05/17 20:47 Dose: 40 mg Pramipexole Dihydrochloride (Mirapex) 0.125 mg PO BEDTIME [facility] Last Admin: 05/05/17 20:47 Dose: 0.125 mg Rosuvastatin Calcium (Crestor) 10 mg PO BEDTIME [facility] Last Admin: 05/05/17 20:47 Dose: 10 mg Saccharomyces Boulardii (Florastor) 250 mg PO DAILY [facility] Last Admin: 05/06/17 10:02 Dose: 250 mg Sodium Chloride (Saline Flush) 10 ml FLUSH ASDIRECTED PRN PRN Reason: Keep Vein Open Last Admin: 05/04/17 15:04 Dose: 10 ml Temazepam (Restoril) 7.5 mg PO BEDTIME PRN PRN Reason: Insomnia Discontinued Medications Acetaminophen (Tylenol Solution) 650 mg PO Q6H PRN PRN Reason: Fever Calcium Carbonate/Glycine (Tums) 1,000 mg PO ONETIME ONE Stop: 05/04/17 22:05 Last Admin: 05/04/17 22:43 Dose: 1,000 mg Sodium Chloride (Normal Saline) 1,000 mls @ 125 mls/hr IV ASDIRECTED [facility] Last Admin: 05/04/17 15:04 Dose: 125 mls/hr Levofloxacin/Dextrose 750 mg/ (Premix) 150 mls @ 100 mls/hr IV ONETIME ONE Stop: 05/04/17 17:55 Last Admin: 05/04/17 16:52 Dose: 100 mls/hr Sodium Chloride (Sodium Chloride 0.45%) 1,000 mls @ 150 mls/hr IV ASDIRECTED [facility] Stop: 05/04/17 23:00 Last Admin: 05/04/17 19:43 Dose: 150 mls/hr Ceftriaxone Sodium 2 gm/ (Sodium Chloride) 100 mls @ 200 mls/hr IV Q24H [facility] Last Admin: 05/06/17 09:53 Dose: 200 mls/hr Magnesium Sulfate 2 gm/ Premix 50 mls @ 25 mls/hr IV ONETIME ONE Stop: 05/05/17 12:51 Last Admin: 05/05/17 12:02 Dose: 25 mls/hr Influenza Virus Vaccine (Pharmacy To Dose - Influenza Vaccine) 1 each IM ONETIME ONE Stop: 05/04/17 18:23 Influenza Virus Vaccine (Fluzone High-Dose ) 180 mcg IM .ONCE ONE Stop: 05/05/17 10:01 Levothyroxine Sodium (Levothroid) 137 mcg PO DAILY [facility] Last Admin: 05/06/17 13:08 Dose: Not Given - Exam Quality Assessment: Supplemental Oxygen, DVT Prophylaxis General: Alert, Oriented, Cooperative, No Acute Distress HEENT: Pupils Equal, Pupils Reactive, EOMI Neck: Supple, Trachea Midline Lungs: Normal Respiratory Effort, Decreased Breath Sounds Cardiovascular: Regular Rate, Regular Rhythm GI/Abdominal Exam: Normal Bowel Sounds, Soft, Non-Tender, No Organomegaly, No Distention (Female) Exam: Deferred Back Exam: Normal Inspection Extremities: Normal Inspection Skin: Warm Neurological: No New Focal Deficit Psy/Mental Status: Alert, Normal Affect, Normal Mood - Problem List & Annotations (1) Hypothyroid SNOMED Code(s): 56736417 Code(s): E03.9 - HYPOTHYROIDISM, UNSPECIFIED Status: Acute Current Visit : Yes (2) Hyperlipidemia SNOMED Code(s): 38374271 Code(s): E78.5 - HYPERLIPIDEMIA, UNSPECIFIED Status: Acute Current Visit : Yes (3) Pneumonia SNOMED Code(s): 976742335 Code(s): J18.9 - PNEUMONIA, UNSPECIFIED ORGANISM Status: Acute Current Visit: Yes Qualifiers: Pneumonia type: due to unspecified organism Laterality: right Lung location: middle lobe of lung Qualified Code(s): J18.1 - Lobar pneumonia, unspecified organism - Problem List Review Problem List Initiated/Reviewed/Updated: Yes - My Orders Last 24 Hours: My Active Orders 05/06/17 09:00 Consult to Occupational Therapy [OT Evaluation and Treatment] [CONS] Routine 05/06/17 11:15 Levothyroxine [Levothroid] 137 mcg PO ACBREAKFAST 05/06/17 15:21 Benzocaine/Cetylpyrd/Menthol [Cepacol Sore Throat] 1 lozenge MUCMEM Q2HR PRN 05/06/17 18:00 Potassium Chloride 40 meq PO BID 05/07/17 05:00 BMP [BASIC METABOLIC PANEL,BMP] [CHEM] DAILY CBC WITH AUTO DIFF [HEME] DAILY CRP [C-REACTIVE PROTEIN] [CHEM] DAILY MAGNESIUM [CHEM] DAILY 05/07/17 08:00 cefTRIAXone [Rocephin] 2 gm IVPUSH Q24H 05/08/17 05:00 BMP [BASIC METABOLIC PANEL,BMP] [CHEM] DAILY CBC WITH AUTO DIFF [HEME] DAILY CRP [C-REACTIVE PROTEIN] [CHEM] DAILY MAGNESIUM [CHEM] DAILY - Plan Plan:: Impression: CAP with hypoxia Leukocytosis Hyponatremia-->resolved Hypokalemia Chronic HLD Hypothyroidism Plan: IVF ATBS, adjust based on response and Resp work up Home meds Repeat CXR 05/07/17 PNA work up Daily labs Nebs SW/PT/OT DVT/GI prophylaxis
[2017-05-06] MEDS ORDERED: Potassium Chloride 10% 20 MEQ/15 ML Soln 30 ML UD Cup PO SCH (18:00)
[2017-05-06] MEDS ORDERED: Potassium Chloride 20 MEQ Tab.ER PO SCH (18:15)
[2017-05-06] MEDS: Potassium Chloride 20 MEQ Tab.ER PO SCH (18:31)
[2017-05-06] MEDS: Rosuvastatin 10 MG Tab PO SCH (22:12)
[2017-05-06] MEDS: Pramipexole 0.25 MG Tab PO SCH (22:13)
[2017-05-06] MEDS: PARoxetine 20 MG Tab PO SCH (22:14)
[2017-05-07] MEDS: Saccharomyces Boulardii (Probiotic) 250 MG Cap PO SCH (09:25)
[2017-05-07] MEDS: Potassium Chloride 20 MEQ Tab.ER PO SCH ×3 (09:25→23:03)
[2017-05-07] MEDS: cefTRIAXone 2 GM Vial IVPUSH SCH (09:25)
[2017-05-07] MEDS: Benzonatate 100 MG Cap PO SCH ×2 (09:26→23:05)
[2017-05-07] MEDS: Gabapentin 600 MG Tab PO SCH ×2 (09:26→23:04)
[2017-05-07] MEDS: Azithromycin 500 MG in Sodium Chloride 0.9% 250 ML IV SCH (12:54)
[2017-05-07] MEDS ORDERED: Magnesium Sulfate/Water 2 GM in Premix Bag 1 BAG IV ONE (15:21)
--- NOTE | 2017-05-07 15:29 | PCM.PN ---
- General Info Date of Service: 05/07/17 Functional Status: Reports: Tolerating Diet, Ambulating, Urinating - Review of Systems General: Reports: No Symptoms HEENT: Reports: No Symptoms Pulmonary: Reports: No Symptoms Cardiovascular: Reports: No Symptoms Gastrointestinal: Reports: No Symptoms Genitourinary: Reports: No Symptoms Musculoskeletal: Reports: No Symptoms Skin: Reports: No Symptoms Neurological: Reports: No Symptoms Psychiatric: Reports: No Symptoms - Patient Data Vitals - Most Recent: Last Vital Signs Temp 37.1 C 05/07/17 09:24 Pulse 82 05/07/17 09:24 Resp 15 05/07/17 09:24 BP 125/62 05/07/17 09:24 Pulse Ox 92 L 05/07/17 09:24 Weight - Most Recent: 67.177 kg I&O - Last 24 Hours: Intake & Output 05/07/17 05/07/17 05/07/17 06:59 14:59 22:59 Intake Total 1272 Output Total 1650 Balance -378 Lab Results Last 24 Hours: Laboratory Results - last 24 hr 05/07/17 05/07/17 Range/Units 06:26 06:26 WBC 9.49 (3.98-10.04) K/mm3 RBC 3.26 L (3.98-5.22) M/mm3 Hgb 9.7 L (11.2-15.7) gm/L Hct 30.2 L (34.1-44.9) % MCV 92.6 (79.4-94.8) fl MCH 29.8 (25.6-32.2) pg MCHC 32.1 L (32.2-35.5) g/dl RDW Std Deviation 41.9 (36.4-46.3) fL Plt Count 315 (182-369) K/mm3 MPV 9.7 (9.4-12.3) fl Neut % (Auto) 67.7 (34.0-71.1) % Lymph % (Auto) 12.5 L (19.3-51.7) % [place] % (Auto) 15.5 H (4.7-12.5) % Eos % (Auto) 3.2 (0.7-5.8) Baso % (Auto) 0.5 (0.1-1.2) % Neut # (Auto) 6.42 H (1.56-6.13) K/mm3 Lymph # (Auto) 1.19 (1.18-3.74) K/mm3 [place] # (Auto) 1.47 H (0.24-0.36) K/mm3 Eos # (Auto) 0.30 (0.04-0.36) K/mm3 Baso # (Auto) 0.05 (0.01-0.08) K/mm3 Manual Slide Review Abnormal smear Sodium 138 (136-145) mEq/L Potassium 3.3 L (3.5-5.1) mEq/L Chloride 105 (98-107) mEq/L Carbon Dioxide 21 (21-32) mEq/L Anion Gap 15.3 H (5-15) BUN 7 (7-18) mg/dL Creatinine 0.9 (0.55-1.02) mg/dL Est Cr Clr Drug Dosing 49.29 mL/min Estimated GFR (MDRD) > 60 (>60) mL/min BUN/Creatinine Ratio 7.8 L (14-18) Glucose 107 (83-115) mg/dL Calcium 8.7 (8.5-10.1) mg/dL Magnesium 1.6 L (1.8-2.4) mg/dl C-Reactive Protein 17.3 H* (<1.0) mg/dL Med Orders - Current: Current Medications Acetaminophen (Tylenol) 650 mg PO Q6H PRN PRN Reason: Fever Last Admin: 05/06/17 00:17 Dose: 650 mg Albuterol (Proventil Neb Soln) 2.5 mg NEB Q4HRRT PRN PRN Reason: Shortness of Breath Albuterol/Ipratropium (Duoneb 3.0-0.5 Mg/3 Ml) 3 ml NEB QID PRN PRN Reason: Shortness of Breath Benzocaine/Menthol (Cepacol Sore Throat) 1 lozenge MUCMEM Q2HR PRN PRN Reason: throat irritation Last Admin: 05/07/17 00:00 Dose: 1 lozenge Benzonatate (Tessalon Perles) 200 mg PO BID [facility] Last Admin: 05/07/17 09:26 Dose: 200 mg Ceftriaxone Sodium (Rocephin) 2 gm IVPUSH Q24H [facility] Last Admin: 05/07/17 09:25 Dose: 2 gm Gabapentin (Neurontin) 600 mg PO BID [facility] Last Admin: 05/07/17 09:26 Dose: 600 mg Guaifenesin/Codeine Phosphate (Robitussin Ac) 10 ml PO Q6H PRN PRN Reason: Cough Last Admin: 05/04/17 19:38 Dose: 10 ml Azithromycin 500 mg/ Sodium (Chloride) 250 mls @ 250 mls/hr IV Q24H [facility] Last Admin: 05/07/17 12:54 Dose: 250 mls/hr Sodium Chloride (Sodium Chloride 0.45%) 1,000 mls @ 100 mls/hr IV ASDIRECTED [facility] Last Admin: 05/06/17 22:11 Dose: 100 mls/hr Magnesium Sulfate 2 gm/ Premix 50 mls @ 25 mls/hr IV ONETIME ONE Stop: 05/07/17 17:20 Levothyroxine Sodium (Levothroid) 137 mcg PO ACBREAKFAST [facility] Last Admin: 05/07/17 05:28 Dose: 137 mcg Ondansetron HCl (Zofran) 4 mg IVPUSH Q4H PRN PRN Reason: nausea/vomitting Paroxetine HCl (Paxil) 40 mg PO BEDTIME [facility] Last Admin: 05/06/17 22:14 Dose: 40 mg Potassium Chloride (Klor-Con M20) 40 meq PO BID [facility] Stop: 05/08/17 09:01 Pramipexole Dihydrochloride (Mirapex) 0.125 mg PO BEDTIME [facility] Last Admin: 05/06/17 22:13 Dose: 0.125 mg Rosuvastatin Calcium (Crestor) 10 mg PO BEDTIME [facility] Last Admin: 05/06/17 22:12 Dose: 10 mg Saccharomyces Boulardii (Florastor) 250 mg PO DAILY [facility] Last Admin: 05/07/17 09:25 Dose: 250 mg Sodium Chloride (Saline Flush) 10 ml FLUSH ASDIRECTED PRN PRN Reason: Keep Vein Open Last Admin: 05/04/17 15:04 Dose: 10 ml Temazepam (Restoril) 7.5 mg PO BEDTIME PRN PRN Reason: Insomnia Discontinued Medications Acetaminophen (Tylenol Solution) 650 mg PO Q6H PRN PRN Reason: Fever Calcium Carbonate/Glycine (Tums) 1,000 mg PO ONETIME ONE Stop: 05/04/17 22:05 Last Admin: 05/04/17 22:43 Dose: 1,000 mg Sodium Chloride (Normal Saline) 1,000 mls @ 125 mls/hr IV ASDIRECTED [facility] Last Admin: 05/04/17 15:04 Dose: 125 mls/hr Levofloxacin/Dextrose 750 mg/ (Premix) 150 mls @ 100 mls/hr IV ONETIME ONE Stop: 05/04/17 17:55 Last Admin: 05/04/17 16:52 Dose: 100 mls/hr Sodium Chloride (Sodium Chloride 0.45%) 1,000 mls @ 150 mls/hr IV ASDIRECTED [facility] Stop: 05/04/17 23:00 Last Admin: 05/04/17 19:43 Dose: 150 mls/hr Ceftriaxone Sodium 2 gm/ (Sodium Chloride) 100 mls @ 200 mls/hr IV Q24H [facility] Last Admin: 05/06/17 09:53 Dose: 200 mls/hr Magnesium Sulfate 2 gm/ Premix 50 mls @ 25 mls/hr IV ONETIME ONE Stop: 05/05/17 12:51 Last Admin: 05/05/17 12:02 Dose: 25 mls/hr Influenza Virus Vaccine (Pharmacy To Dose - Influenza Vaccine) 1 each IM ONETIME ONE Stop: 05/04/17 18:23 Influenza Virus Vaccine (Fluzone High-Dose 2016-) 180 mcg IM .ONCE ONE Stop: 05/05/17 10:01 Levothyroxine Sodium (Levothroid) 137 mcg PO DAILY [facility] Last Admin: 05/06/17 13:08 Dose: Not Given Potassium Chloride (Potassium Chloride) 40 meq PO BID [facility] Stop: 05/06/17 21:01 Last Admin: 05/07/17 02:48 Dose: Not Given Potassium Chloride (Klor-Con M20) 40 meq PO BID [facility] Stop: 05/07/17 09:01 Potassium Chloride (Klor-Con M20) 40 meq PO BID [facility] Stop: 05/07/17 09:01 Last Admin: 05/07/17 09:25 Dose: 40 meq - Exam Quality Assessment: Supplemental Oxygen, DVT Prophylaxis General: Alert, Oriented, Cooperative, No Acute Distress HEENT: Pupils Equal, Pupils Reactive, EOMI Neck: Supple, Trachea Midline, No JVD Lungs: Normal Respiratory Effort Cardiovascular: Regular Rate, Regular Rhythm GI/Abdominal Exam: Normal Bowel Sounds, Soft, Non-Tender, No Organomegaly, No Distention (Female) Exam: Deferred Back Exam: Normal Inspection Extremities: Normal Inspection, Normal Range of Motion, Non-Tender, No Pedal Edema Skin: Warm Neurological: No New Focal Deficit Psy/Mental Status: Alert, Normal Affect, Normal Mood - Problem List & Annotations (1) Hypothyroid SNOMED Code(s): 75515119 Code(s): E03.9 - HYPOTHYROIDISM, UNSPECIFIED Status: Acute Current Visit : Yes (2) Hyperlipidemia SNOMED Code(s): 88045561 Code(s): E78.5 - HYPERLIPIDEMIA, UNSPECIFIED Status: Acute Current Visit : Yes (3) Pneumonia SNOMED Code(s): 869832069 Code(s): J18.9 - PNEUMONIA, UNSPECIFIED ORGANISM Status: Acute Current Visit: Yes Qualifiers: Pneumonia type: due to unspecified organism Laterality: right Lung location: middle lobe of lung Qualified Code(s): J18.1 - Lobar pneumonia, unspecified organism - Problem List Review Problem List Initiated/Reviewed/Updated: Yes - My Orders Last 24 Hours: My Active Orders 05/06/17 15:21 Benzocaine/Cetylpyrd/Menthol [Cepacol Sore Throat] 1 lozenge MUCMEM Q2HR PRN 05/07/17 08:00 cefTRIAXone [Rocephin] 2 gm IVPUSH Q24H 05/07/17 11:00 CXR [Chest 2V] [CR] Routine 05/07/17 15:21 Magnesium Sulfate/Water [Magnesium Sulfate 2 GM in Water 50 ML] 2 gm Premix Bag 1 bag IV ONETIME 05/07/17 17:00 Potassium Chloride [Klor-Con M20] 40 meq PO BID 05/08/17 05:00 BMP [BASIC METABOLIC PANEL,BMP] [CHEM] DAILY CBC WITH AUTO DIFF [HEME] DAILY CRP [C-REACTIVE PROTEIN] [CHEM] DAILY MAGNESIUM [CHEM] DAILY - Plan Plan:: Impression: CAP with hypoxia Leukocytosis Hyponatremia-->resolved Hypokalemia-->replacement ordered. Chronic HLD Hypothyroidism Plan: IVF ATBS, adjust based on response and Resp work up Home meds Repeat CXR 05/07/17 PNA work up Daily labs Nebs SW/PT/OT DVT/GI prophylaxis LOS>96 hours gradually improving with treatment
[2017-05-07] MEDS: Sodium Chloride 0.45% 1,000 ML IV SCH (19:08)
[2017-05-07] MEDS: Rosuvastatin 10 MG Tab PO SCH (23:03)
[2017-05-07] MEDS: Pramipexole 0.25 MG Tab PO SCH (23:03)
[2017-05-07] MEDS: PARoxetine 20 MG Tab PO SCH (23:04)
[2017-05-07] MEDS: Benzocaine/Cetylpyridinium/Menthol Lozenge MUCMEM PRN ×2 (23:15)
[2017-05-08] MEDS: Sodium Chloride 0.45% 1,000 ML IV SCH ×2 (05:50→18:01)
[2017-05-08] MEDS: cefTRIAXone 2 GM Vial IVPUSH SCH (09:13)
[2017-05-08] MEDS: Benzonatate 100 MG Cap PO SCH ×2 (09:14→22:18)
[2017-05-08] MEDS: Potassium Chloride 20 MEQ Tab.ER PO SCH (09:14)
[2017-05-08] MEDS: Saccharomyces Boulardii (Probiotic) 250 MG Cap PO SCH ×2 (09:14→22:17)
[2017-05-08] MEDS: Gabapentin 600 MG Tab PO SCH ×2 (09:15→22:17)
--- NOTE | 2017-05-08 11:43 | PCM.PN ---
- General Info Date of Service: 05/08/17 Functional Status: Reports: Tolerating Diet, Ambulating, Urinating - Review of Systems General: Reports: No Symptoms HEENT: Reports: No Symptoms Pulmonary: Reports: No Symptoms Cardiovascular: Reports: No Symptoms Gastrointestinal: Reports: No Symptoms Genitourinary: Reports: No Symptoms Musculoskeletal: Reports: No Symptoms Skin: Reports: No Symptoms Neurological: Reports: No Symptoms Psychiatric: Reports: No Symptoms - Patient Data Vitals - Most Recent: Last Vital Signs Temp 36.7 C 05/08/17 02:23 Pulse 88 05/08/17 02:23 Resp 16 05/08/17 02:23 BP 130/73 05/08/17 02:23 Pulse Ox 94 L 05/08/17 02:23 Weight - Most Recent: 66.224 kg I&O - Last 24 Hours: Intake & Output 05/07/17 05/08/17 05/08/17 22:59 06:59 14:59 Intake Total 2130 1800 Output Total 1500 2400 Balance 630 -600 Lab Results Last 24 Hours: Laboratory Results - last 24 hr 05/08/17 05/08/17 Range/Units 06:06 06:06 WBC 9.35 (3.98-10.04) K/mm3 RBC 3.43 L (3.98-5.22) M/mm3 Hgb 10.5 L (11.2-15.7) gm/L Hct 31.9 L (34.1-44.9) % MCV 93.0 (79.4-94.8) fl MCH 30.6 (25.6-32.2) pg MCHC 32.9 (32.2-35.5) g/dl RDW Std Deviation 42.2 (36.4-46.3) fL Plt Count 363 (182-369) K/mm3 MPV 9.3 L (9.4-12.3) fl Neut % (Auto) 62.9 (34.0-71.1) % Lymph % (Auto) 16.7 L (19.3-51.7) % [place] % (Auto) 13.2 H (4.7-12.5) % Eos % (Auto) 4.1 (0.7-5.8) Baso % (Auto) 2.1 H (0.1-1.2) % Neut # (Auto) 5.89 (1.56-6.13) K/mm3 Lymph # (Auto) 1.56 (1.18-3.74) K/mm3 [place] # (Auto) 1.23 H (0.24-0.36) K/mm3 Eos # (Auto) 0.38 H (0.04-0.36) K/mm3 Baso # (Auto) 0.20 H (0.01-0.08) K/mm3 Manual Slide Review Abnormal smear Sodium 138 (136-145) mEq/L Potassium 4.2 (3.5-5.1) mEq/L Chloride 104 (98-107) mEq/L Carbon Dioxide 23 (21-32) mEq/L Anion Gap 15.2 H (5-15) BUN 7 (7-18) mg/dL Creatinine 0.9 (0.55-1.02) mg/dL Est Cr Clr Drug Dosing 49.29 mL/min Estimated GFR (MDRD) > 60 (>60) mL/min BUN/Creatinine Ratio 7.8 L (14-18) Glucose 102 (83-115) mg/dL Calcium 9.0 (8.5-10.1) mg/dL Magnesium 1.9 (1.8-2.4) mg/dl C-Reactive Protein 13.3 H* (<1.0) mg/dL Med Orders - Current: Current Medications Acetaminophen (Tylenol) 650 mg PO Q6H PRN PRN Reason: Fever Last Admin: 05/06/17 00:17 Dose: 650 mg Albuterol (Proventil Neb Soln) 2.5 mg NEB Q4HRRT PRN PRN Reason: Shortness of Breath Albuterol/Ipratropium (Duoneb 3.0-0.5 Mg/3 Ml) 3 ml NEB QID PRN PRN Reason: Shortness of Breath Benzocaine/Menthol (Cepacol Sore Throat) 1 lozenge MUCMEM Q2HR PRN PRN Reason: throat irritation Last Admin: 05/07/17 23:15 Dose: 1 lozenge Benzonatate (Tessalon Perles) 200 mg PO BID [facility] Last Admin: 05/08/17 09:14 Dose: 200 mg Ceftriaxone Sodium (Rocephin) 2 gm IVPUSH Q24H [facility] Last Admin: 05/08/17 09:13 Dose: 2 gm Gabapentin (Neurontin) 600 mg PO BID [facility] Last Admin: 05/08/17 09:15 Dose: 600 mg Guaifenesin/Codeine Phosphate (Robitussin Ac) 10 ml PO Q6H PRN PRN Reason: Cough Last Admin: 05/04/17 19:38 Dose: 10 ml Azithromycin 500 mg/ Sodium (Chloride) 250 mls @ 250 mls/hr IV Q24H [facility] Last Admin: 05/07/17 12:54 Dose: 250 mls/hr Sodium Chloride (Sodium Chloride 0.45%) 1,000 mls @ 100 mls/hr IV ASDIRECTED [facility] Last Admin: 05/08/17 05:50 Dose: 100 mls/hr Levothyroxine Sodium (Levothroid) 137 mcg PO ACBREAKFAST [facility] Last Admin: 05/08/17 05:50 Dose: 137 mcg Ondansetron HCl (Zofran) 4 mg IVPUSH Q4H PRN PRN Reason: nausea/vomitting Paroxetine HCl (Paxil) 40 mg PO BEDTIME [facility] Last Admin: 05/07/17 23:04 Dose: 40 mg Pramipexole Dihydrochloride (Mirapex) 0.125 mg PO BEDTIME [facility] Last Admin: 05/07/17 23:03 Dose: 0.125 mg Rosuvastatin Calcium (Crestor) 10 mg PO BEDTIME [facility] Last Admin: 05/07/17 23:03 Dose: 10 mg Saccharomyces Boulardii (Florastor) 250 mg PO DAILY [facility] Last Admin: 05/08/17 09:14 Dose: 250 mg Sodium Chloride (Saline Flush) 10 ml FLUSH ASDIRECTED PRN PRN Reason: Keep Vein Open Last Admin: 05/04/17 15:04 Dose: 10 ml Temazepam (Restoril) 7.5 mg PO BEDTIME PRN PRN Reason: Insomnia Discontinued Medications Acetaminophen (Tylenol Solution) 650 mg PO Q6H PRN PRN Reason: Fever Calcium Carbonate/Glycine (Tums) 1,000 mg PO ONETIME ONE Stop: 05/04/17 22:05 Last Admin: 05/04/17 22:43 Dose: 1,000 mg Sodium Chloride (Normal Saline) 1,000 mls @ 125 mls/hr IV ASDIRECTED [facility] Last Admin: 05/04/17 15:04 Dose: 125 mls/hr Levofloxacin/Dextrose 750 mg/ (Premix) 150 mls @ 100 mls/hr IV ONETIME ONE Stop: 05/04/17 17:55 Last Admin: 05/04/17 16:52 Dose: 100 mls/hr Sodium Chloride (Sodium Chloride 0.45%) 1,000 mls @ 150 mls/hr IV ASDIRECTED [facility] Stop: 05/04/17 23:00 Last Admin: 05/04/17 19:43 Dose: 150 mls/hr Ceftriaxone Sodium 2 gm/ (Sodium Chloride) 100 mls @ 200 mls/hr IV Q24H [facility] Last Admin: 05/06/17 09:53 Dose: 200 mls/hr Magnesium Sulfate 2 gm/ Premix 50 mls @ 25 mls/hr IV ONETIME ONE Stop: 05/05/17 12:51 Last Admin: 05/05/17 12:02 Dose: 25 mls/hr Magnesium Sulfate 2 gm/ Premix 50 mls @ 25 mls/hr IV ONETIME ONE Stop: 05/07/17 17:20 Last Admin: 05/07/17 16:14 Dose: 25 mls/hr Influenza Virus Vaccine (Pharmacy To Dose - Influenza Vaccine) 1 each IM ONETIME ONE Stop: 05/04/17 18:23 Influenza Virus Vaccine (Fluzone High-Dose 2016-) 180 mcg IM .ONCE ONE Stop: 05/05/17 10:01 Levothyroxine Sodium (Levothroid) 137 mcg PO DAILY [facility] Last Admin: 05/06/17 13:08 Dose: Not Given Potassium Chloride (Potassium Chloride) 40 meq PO BID [facility] Stop: 05/06/17 21:01 Last Admin: 05/07/17 02:48 Dose: Not Given Potassium Chloride (Klor-Con M20) 40 meq PO BID [facility] Stop: 05/07/17 09:01 Potassium Chloride (Klor-Con M20) 40 meq PO BID [facility] Stop: 05/07/17 09:01 Last Admin: 05/07/17 09:25 Dose: 40 meq Potassium Chloride (Klor-Con M20) 40 meq PO BID [facility] Stop: 05/08/17 09:01 Last Admin: 05/08/17 09:14 Dose: 40 meq - Exam Quality Assessment: DVT Prophylaxis General: Alert, Oriented, Cooperative HEENT: Pupils Equal, Pupils Reactive, EOMI Neck: Supple, Trachea Midline, No JVD Lungs: Normal Respiratory Effort Cardiovascular: Regular Rate, Regular Rhythm GI/Abdominal Exam: Normal Bowel Sounds, Soft, Non-Tender, No Organomegaly, No Distention (Female) Exam: Deferred Back Exam: Normal Inspection Extremities: Normal Inspection Skin: Warm Neurological: No New Focal Deficit Psy/Mental Status: Alert, Normal Affect, Normal Mood - Problem List & Annotations (1) Hypothyroid SNOMED Code(s): 90486349 Code(s): E03.9 - HYPOTHYROIDISM, UNSPECIFIED Status: Acute (2) Hyperlipidemia SNOMED Code(s): 31748554 Code(s): E78.5 - HYPERLIPIDEMIA, UNSPECIFIED Status: Acute (3) Pneumonia SNOMED Code(s): 423312811 Code(s): J18.9 - PNEUMONIA, UNSPECIFIED ORGANISM Status: Acute Qualifiers: Pneumonia type: due to unspecified organism Laterality: right Lung location: middle lobe of lung Qualified Code(s): J18.1 - Lobar pneumonia, unspecified organism - Problem List Review Problem List Initiated/Reviewed/Updated: Yes - My Orders Last 24 Hours: My Active Orders 05/07/17 11:00 CXR [Chest 2V] [CR] Routine - Plan Plan:: Impression: CAP with hypoxia Leukocytosis Hyponatremia-->resolved Hypokalemia-->replacement ordered. Chronic HLD Hypothyroidism Plan: IVF ATBS, adjust based on response and Resp work up Home meds Daily labs Nebs SW/PT/OT DVT/GI prophylaxis LOS>96 hours gradually improving with treatment for CAP, will DC 05/09/17.
[2017-05-08] MEDS ORDERED: Loperamide 2 MG Cap PO PRN (11:46)
[2017-05-08] MEDS ORDERED: Magnesium Sulfate/Water 2 GM in Premix Bag 1 BAG IV ONE (11:47)
[2017-05-08] MEDS: Azithromycin 500 MG in Sodium Chloride 0.9% 250 ML IV SCH (13:21)
[2017-05-08] MEDS: Rosuvastatin 10 MG Tab PO SCH (22:17)
[2017-05-08] MEDS: PARoxetine 20 MG Tab PO SCH (22:17)
[2017-05-08] MEDS: Pramipexole 0.25 MG Tab PO SCH (22:18)
[2017-05-09] MEDS: Sodium Chloride 0.45% 1,000 ML IV SCH (04:15)
--- NOTE | 2017-05-09 07:59 | CR ---
Chest: Two views of the chest are obtained. Comparison: Prior chest x-ray of 05/06/17. Heart size and mediastinum are within normal limits. Right shoulder prosthesis is seen. Lung markings are diffusely increased which appear stable from prior exam. Scoliosis is present within the spine. Bony structures are osteopenic. Impression: 1. Stable increased lung markings from prior exam. Nothing acute is otherwise seen. Diagnostic code #3 I agree with preliminary report issued by [facility] ([facility] report finalized on 05/07/17, 11:03 AM Central Time)
[2017-05-09] MEDS: Saccharomyces Boulardii (Probiotic) 250 MG Cap PO SCH (10:00)
[2017-05-09] MEDS: Benzocaine/Cetylpyridinium/Menthol Lozenge MUCMEM PRN (10:01)
[2017-05-09] MEDS: Benzonatate 100 MG Cap PO SCH (10:01)
[2017-05-09] MEDS: Gabapentin 600 MG Tab PO SCH (10:02)
--- NOTE | 2017-05-09 10:26 | PCM.DCSUM1 ---
Discharge Summary - Hospital Course Free Text/Narrative:: 77 year old female began to experience constitutional symptoms 5 days prior to admission. She has had body aches and a productive cough. There have been no sick contacts. She did not get flu shot this year. Additionally the patient had RUQ 1-2 days ago which has resolved. Laboratory studies documented in ED reveals elevated WBCs, hyponatremia as well as a concentrated urine with a sp gr 1.030. CXR shows a RML infiltrate, saturation by pulse oximetry, 87% on room air. Hospitalist service is consulted for admission for Pneumonia. Patient is Full Code status. Course of hospital stay was with treatment for RML pneumonia with zithromax and rocephin IV, tessalon and cough syrup, aggressive RT/pulmonary care. Serial CXR' s x 3 revealed slow improvements if RML infiltrate and perihilar interstitial changes. Mycoplasma and strep pneumo antigens were negative as was flu screen and resp viral panel. WBC normalized, hyponatremia resolved. Renal function improved to normal with hydration. CRP initially was 33.9 and improved significantly to 13.3 on day of discharge. She developed loose stools, stool studies and c.diff were negative. Imodium was started with improvements. PT/OT were consulted. She had a slow course of improvement, O2 was slowly titrated down and off. She will be discharged home today on Zithromax x 3 more days, tessalon perles and imodium PRN for loose stools. She is to f/up with PCP within one week of discharge. - Discharge Data Discharge Date: 05/09/17 (admit date 05/04/17) Discharge Disposition: Home, Self-Care 01 Condition: Good - Patient Summary/Data Operative Procedure(s) Performed: None Complications: None Consults: Consultations 05/04/17 18:54 Consult to Automobile Body Repair Supervisor [CONS] Routine PT Evaluation and Treatment [CONS] Routine 05/06/17 09:00 Consult to Occupational Therapy [OT Evaluation and Treatment] [CONS] Routine Labs Pending at D/C: None Recommended Follow-up Testing/Procedures: Follow up with PCP within one week of discharge. Recommend repeat CXR in 2 - 3 wks to assure clearing of perihilar infiltrates. Planned Operative Procedure(s) after DC: None Hospital Course: As above - Patient Instructions Diet: Usual Diet as Tolerated Activity: As Tolerated Showering/Bathing: October Shower Notify Provider of: Fever, Increased Pain, Nausea and/or Vomiting (worsening cough, shortness of breath, dizziness, weakness) - Discharge Plan Prescriptions/Med Rec: Azithromycin [Zithromax] 500 mg PO Q24H #3 tablet Benzonatate [Tessalon Perles] 200 mg PO TID PRN #30 cap PRN Reason: Cough Loperamide [Imodium] 2 mg PO Q6H PRN #20 cap PRN Reason: Diarrhea Home Medications: Home Meds Gabapentin [Neurontin] 600 mg PO BID 05/04/17 [History] Levothyroxine [Levothroid] 137 mcg PO DAILY 05/04/17 [History] PARoxetine HCl [Paroxetine HCl] 40 mg PO BEDTIME 05/04/17 [History] Pramipexole Di-HCl [Mirapex] 0.125 mg PO BEDTIME 05/04/17 [History] Rosuvastatin [Crestor] 10 mg PO BEDTIME 05/04/17 [History] Acetaminophen [Tylenol] 650 mg PO Q6H PRN tablet 05/09/17 [Rx] Azithromycin [Zithromax] 500 mg PO Q24H #3 tablet 05/09/17 [Rx] Benzonatate [Tessalon Perles] 200 mg PO TID PRN #30 cap 05/09/17 [Rx] Loperamide [Imodium] 2 mg PO Q6H PRN #20 cap 05/09/17 [Rx] Patient Handouts: Community-Acquired Pneumonia, Adult, [id number] Referrals: PCP,None [Primary Care Provider] - - Discharge Summary/Plan Comment DC Time >30 min.: Yes (40 min) - General Info Date of Service: 05/09/17 Admission Dx/Problem (Free Text: Admission Diagnosis/Problem Admission Diagnosis/Problem Pneumonia Cough improved, minimal to no SOB today. Appetite is good. Ambulating. Voiding. VSS. Anxious for DC home with today. Functional Status: Reports: Pain Controlled, Tolerating Diet, Ambulating, Urinating, Incentive Spirometry - Review of Systems General: Reports: No Symptoms. Denies: Fever, Weakness HEENT: Reports: No Symptoms Pulmonary: Reports: No Symptoms. Denies: Shortness of Breath, Cough, Sputum, Wheezing Cardiovascular: Reports: No Symptoms. Denies: Chest Pain, Palpitations, Dyspnea on Exertion Gastrointestinal: Reports: No Symptoms Genitourinary: Reports: No Symptoms Musculoskeletal: Reports: No Symptoms Neurological: Reports: No Symptoms - Patient Data Vitals - Most Recent: Last Vital Signs Temp 98.6 F 05/09/17 04:12 Pulse 77 05/09/17 04:12 Resp 16 05/09/17 04:12 BP 126/83 05/09/17 04:12 Pulse Ox 94 L 05/09/17 04:12 Weight - Most Recent: 144 lb I&O - Last 24 hours: Intake & Output 05/08/17 05/09/17 05/09/17 22:59 06:59 14:59 Intake Total 2187 450 Output Total 1650 1600 Balance 537 -1150 Lab Results - Last 24 hrs: Laboratory Results - last 24 hr 05/08/17 Range/Units 16:10 C.difficile [id number] Presumptive negative C. difficile Tox (PCR) Negative MARY Results - Last 24 hrs: Microbiology 05/08/17 18:10 Stool for WBCs - Final Stool / Feces - Stool, Liquid Med Orders - Current: Current Medications Acetaminophen (Tylenol) 650 mg PO Q6H PRN PRN Reason: Fever Last Admin: 05/06/17 00:17 Dose: 650 mg Albuterol (Proventil Neb Soln) 2.5 mg NEB Q4HRRT PRN PRN Reason: Shortness of Breath Albuterol/Ipratropium (Duoneb 3.0-0.5 Mg/3 Ml) 3 ml NEB QID PRN PRN Reason: Shortness of Breath Azithromycin (Zithromax) 500 mg PO Q24H [facility] Stop: 05/11/17 13:01 Benzocaine/Menthol (Cepacol Sore Throat) 1 lozenge MUCMEM Q2HR PRN PRN Reason: throat irritation Last Admin: 05/09/17 10:01 Dose: 1 lozenge Benzonatate (Tessalon Perles) 200 mg PO BID [facility] Last Admin: 05/09/17 10:01 Dose: 200 mg Gabapentin (Neurontin) 600 mg PO BID [facility] Last Admin: 05/09/17 10:02 Dose: 600 mg Guaifenesin/Codeine Phosphate (Robitussin Ac) 10 ml PO Q6H PRN PRN Reason: Cough Last Admin: 05/04/17 19:38 Dose: 10 ml Sodium Chloride (Sodium Chloride 0.45%) 1,000 mls @ 100 mls/hr IV ASDIRECTED [facility] Last Admin: 05/09/17 04:15 Dose: 100 mls/hr Levothyroxine Sodium (Levothroid) 137 mcg PO ACBREAKFAST [facility] Last Admin: 05/09/17 06:37 Dose: 137 mcg Loperamide HCl (Imodium) 2 mg PO Q6H PRN PRN Reason: Diarrhea Last Admin: 05/08/17 22:18 Dose: 2 mg Ondansetron HCl (Zofran) 4 mg IVPUSH Q4H PRN PRN Reason: nausea/vomitting Paroxetine HCl (Paxil) 40 mg PO BEDTIME [facility] Last Admin: 05/08/17 22:17 Dose: 40 mg Pramipexole Dihydrochloride (Mirapex) 0.125 mg PO BEDTIME [facility] Last Admin: 05/08/17 22:18 Dose: 0.125 mg Rosuvastatin Calcium (Crestor) 10 mg PO BEDTIME [facility] Last Admin: 05/08/17 22:17 Dose: 10 mg Saccharomyces Boulardii (Florastor) 250 mg PO BID [facility] Last Admin: 05/09/17 10:00 Dose: 250 mg Sodium Chloride (Saline Flush) 10 ml FLUSH ASDIRECTED PRN PRN Reason: Keep Vein Open Last Admin: 05/04/17 15:04 Dose: 10 ml Temazepam (Restoril) 7.5 mg PO BEDTIME PRN PRN Reason: Insomnia Discontinued Medications Acetaminophen (Tylenol Solution) 650 mg PO Q6H PRN PRN Reason: Fever Calcium Carbonate/Glycine (Tums) 1,000 mg PO ONETIME ONE Stop: 05/04/17 22:05 Last Admin: 05/04/17 22:43 Dose: 1,000 mg Ceftriaxone Sodium (Rocephin) 2 gm IVPUSH Q24H [facility] Last Admin: 05/08/17 09:13 Dose: 2 gm Sodium Chloride (Normal Saline) 1,000 mls @ 125 mls/hr IV ASDIRECTED [facility] Last Admin: 05/04/17 15:04 Dose: 125 mls/hr Levofloxacin/Dextrose 750 mg/ (Premix) 150 mls @ 100 mls/hr IV ONETIME ONE Stop: 05/04/17 17:55 Last Admin: 05/04/17 16:52 Dose: 100 mls/hr Sodium Chloride (Sodium Chloride 0.45%) 1,000 mls @ 150 mls/hr IV ASDIRECTED [facility] Stop: 05/04/17 23:00 Last Admin: 05/04/17 19:43 Dose: 150 mls/hr Azithromycin 500 mg/ Sodium (Chloride) 250 mls @ 250 mls/hr IV Q24H [facility] Stop: 05/08/17 15:00 Last Admin: 05/08/17 13:21 Dose: 250 mls/hr Ceftriaxone Sodium 2 gm/ (Sodium Chloride) 100 mls @ 200 mls/hr IV Q24H [facility] Last Admin: 05/06/17 09:53 Dose: 200 mls/hr Magnesium Sulfate 2 gm/ Premix 50 mls @ 25 mls/hr IV ONETIME ONE Stop: 05/05/17 12:51 Last Admin: 05/05/17 12:02 Dose: 25 mls/hr Magnesium Sulfate 2 gm/ Premix 50 mls @ 25 mls/hr IV ONETIME ONE Stop: 05/07/17 17:20 Last Admin: 05/07/17 16:14 Dose: 25 mls/hr Magnesium Sulfate 2 gm/ Premix 50 mls @ 25 mls/hr IV ONETIME ONE Stop: 05/08/17 13:46 Last Admin: 05/08/17 13:22 Dose: 25 mls/hr Influenza Virus Vaccine (Pharmacy To Dose - Influenza Vaccine) 1 each IM ONETIME ONE Stop: 05/04/17 18:23 Influenza Virus Vaccine (Fluzone High-Dose ) 180 mcg IM .ONCE ONE Stop: 05/05/17 10:01 Levothyroxine Sodium (Levothroid) 137 mcg PO DAILY [facility] Last Admin: 05/06/17 13:08 Dose: Not Given Potassium Chloride (Potassium Chloride) 40 meq PO BID [facility] Stop: 05/06/17 21:01 Last Admin: 05/07/17 02:48 Dose: Not Given Potassium Chloride (Klor-Con M20) 40 meq PO BID [facility] Stop: 05/07/17 09:01 Potassium Chloride (Klor-Con M20) 40 meq PO BID [facility] Stop: 05/07/17 09:01 Last Admin: 05/07/17 09:25 Dose: 40 meq Potassium Chloride (Klor-Con M20) 40 meq PO BID [facility] Stop: 05/08/17 09:01 Last Admin: 05/08/17 09:14 Dose: 40 meq Saccharomyces Boulardii (Florastor) 250 mg PO DAILY [facility] Last Admin: 05/08/17 09:14 Dose: 250 mg - Exam Quality Assessment: Reports: DVT Prophylaxis General: Reports: Alert, Oriented, Cooperative, No Acute Distress HEENT: Reports: Pupils Equal, EOMI, Mucous Membr. Moist/[place] Neck: Reports: Supple Lungs: Reports: Clear to Auscultation, Normal Respiratory Effort, Decreased Breath Sounds (bases) Cardiovascular: Reports: Regular Rate, Regular Rhythm GI/Abdominal Exam: Normal Bowel Sounds, Soft, Non-Tender (Female) Exam: Deferred Rectal (Female) Exam: Deferred Extremities: Normal Inspection, No Pedal Edema, Normal Capillary Refill Neurological: Reports: No New Focal Deficit Psy/Mental Status: Reports: Alert, Normal Affect, Normal Mood *Q Meaningful Use (DIS) - VTE *Q VTE Criteria *Q: - Stroke *Q Stroke Criteria *Q: - AMI *Q AMI Criteria *Q:
--- NOTE | 2017-05-09 11:27 | CR ---
Chest: Portable view of the chest was obtained. Comparison: Prior chest x-ray is not available. Heart size is within normal limits. Mild tortuosity of the thoracic aorta is seen. Slight parenchymal density noted within the right upper lung. This finding is most likely due to scarring. Lungs otherwise are clear. Right shoulder prosthesis is noted. Bony structures are otherwise intact. Impression: 1. Parenchymal density within the right upper chest most likely due to scarring. Other incidental findings. Nothing acute is seen. Diagnostic code #3
[2017-05-09] MEDS ORDERED: Azithromycin 250 MG Tab PO SCH (13:00)
== END 2017-05-09 13:29 | disposition home or self-care (01) | DRG 194 ==
LOC: JD.ED 13:12 → UNDOADMIN 17:14 → JD.MS 17:14
PROVIDERS: ADMIT Internal Medicine Cardiovascular Disease; ATTEND Internal Medicine Cardiovascular Disease
PROC: 3E0234Z Introduction of Serum, Toxoid and Vaccine into Muscle, Percutaneous Approach (ICD-10-PCS; principal; 2017-05-09)
DX: J18.9 Pneumonia, unspecified organism (principal); E87.1 Hypo-osmolality and hyponatremia; R09.02 Hypoxemia; M19.90 Unspecified osteoarthritis, unspecified site; E03.9 Hypothyroidism, unspecified; G62.9 Polyneuropathy, unspecified; E78.5 Hyperlipidemia, unspecified; E87.6 Hypokalemia; Z79.899 Other long term (current) drug therapy; Z23 Encounter for immunization
CPT/HCPCS: 36415; 71010; 80053; 81001; 84484; 85025; 86140; 87081; 87430; 87486; 87581; 87633; 87798; 87804 ×2; 87899; 96361; 96365; 99285; J1956; J7040; J7050; 71020; 71020-26; 80048; 83605; 83735; 86738; 87046; 87106; 87493; 87641; 89055; 90662; 97110-GP; 97116-GP; 97162-GP; 97165-GO; 99223; 99231; 99239; A9270-GY; G0008; J0456; J0696; J3475; J7030

== ENCOUNTER → 2018-09-28 | Day surgery (SDC) | payer MEDICARE, OTHER ==
[~2018-09-28] MED LIST: Brimonidine 0.2% Ophth Soln 5 ML Bottle EYELF SCH; Cefuroxime 10 MG/ML SYRINGE EYELF SCH; Lidocaine 1% PF 2 ML SDV INJECT SCH; Phenylephrine 2.5% Ophth Soln 15 ML Bot EYELF SCH; Phenylephrine 2.5% Ophth Soln 2 ML Bot EYELF SCH; Pilocarpine 4% Ophth Soln 15 ML Bot EYELF SCH; Polymyxin B/Trimethoprim 10 ML Bottle EYELF SCH; Tetracaine HCl/PF 0.5% 4 ML Bottle EYELF SCH; Tropicamide 1% Ophth Soln 15 ML Bottle EYELF SCH
[2018-09-28] MEDS: Brimonidine 0.2% Ophth Soln 5 ML Bottle EYELF SCH ×2 (09:49→10:19)
== END ==
LOC: JD.SDS 09:44
PROVIDERS: ATTEND Ophthalmology
DX: H26.493 Other secondary cataract, bilateral (principal); H52.31 Anisometropia; H16.223 Keratoconjunctivitis sicca, not specified as Sjogren's, bilateral; H16.103 Unspecified superficial keratitis, bilateral; I10 Essential (primary) hypertension; E11.9 Type 2 diabetes mellitus without complications; E78.00 Pure hypercholesterolemia, unspecified; E07.9 Disorder of thyroid, unspecified; M19.90 Unspecified osteoarthritis, unspecified site; Z98.42 Cataract extraction status, left eye; Z98.41 Cataract extraction status, right eye; Z96.1 Presence of intraocular lens; Z83.518 Family history of other specified eye disorder; Z79.899 Other long term (current) drug therapy

== ENCOUNTER 2020-07-07 14:20 | Emergency (ER) | payer MEDICARE, OTHER ==
[2020-07-07] MEDS ORDERED: Sodium Chloride 0.9% 10 ML Syringe FLUSH PRN (15:25)
[2020-07-07] MEDS ORDERED: Casirivimab 1,200 MG, Imdevimab 1,200 MG in Sodium Chloride 0.9% 230 ML IV ONE (15:30)
[2020-07-07] MEDS ORDERED: methylPREDNISolone Sodium Succinate 125 MG/2 ML SDV IVPUSH PRN (15:30)
[2020-07-07] MEDS ORDERED: diphenhydrAMINE 50 MG/ML SDV IVPUSH PRN (15:30)
[2020-07-07] MEDS ORDERED: Sodium Chloride 0.9% 10 ML Syringe FLUSH SCH (15:30)
[2020-07-07] MEDS ORDERED: EPINEPHrine 1 MG/ML SDV IM PRN (15:30)
[2020-07-07] MEDS ORDERED: Famotidine 20 MG/2 ML SDV IVPUSH PRN (15:30)
--- NOTE | 2020-07-07 15:36 | EDM.PDOC ---
ED HPI GENERAL MEDICAL PROBLEM - General Chief Complaint: Respiratory Problem Stated Complaint: COVID + AND WEAK/COUGH Time Seen by Provider: 07/07/20 15:04 Source of Information: Reports: Patient, RN Notes Reviewed History Limitations: Reports: No Limitations - History of Present Illness INITIAL COMMENTS - FREE TEXT/NARRATIVE: Patient is an 80-year-old female who presents to the ED for the evaluation of her COVID-19 disease. Patient notes that she tested positive for COVID-19 on 07/03/2020, and notes she had symptoms a few days prior to this. She notes that she has been sick for roughly 7 to days. She does state that her cough and shortness of breath got worse yesterday. She notes that she has a very dry cough and just cannot get anything up with a cough. She states that she coughs so much, she makes herself nauseous however she is not had any vomiting. Her is also ill with COVID-19. He did receive outpatient monoclonal antibody therapy last week. Notes why she got tested for COVID-19. She is not having any chest pain, fevers, chills, nausea/vomiting/diarrhea. She does note a very poor appetite, dry cough, and she gets winded pretty much anytime she tries to get up and do much of anything at all. Primary care provider is Dr. Perez. - Related Data Allergies Allergy/AdvReac Type Severity Reaction Status Date / Time No Known Allergies Allergy Verified 07/07/20 15:10 Home Meds: Home Meds Gabapentin [Neurontin] 600 mg PO TID 05/04/17 [History] PARoxetine HCL [Paroxetine HCl] 40 mg PO BEDTIME 05/04/17 [History] Rosuvastatin [Crestor] 10 mg PO BEDTIME 05/04/17 [History] Levothyroxine [Synthroid] 100 mcg PO DAILY 09/25/18 [History] Metoprolol Succinate [Toprol XL] 25 mg PO DAILY 09/25/18 [History] Pantoprazole Sodium [Protonix] 40 mg PO DAILY 09/25/18 [History] Pramipexole [Mirapex] 0.5 mg PO BEDTIME 09/25/18 [History] Past Medical History HEENT History: Reports: Cataract 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 Musculoskeletal History: Reports: Osteoarthritis Neurological History: Reports: Neuropathy, Peripheral, TIA Endocrine/Metabolic History: Reports: Hypothyroidism - Infectious Disease History Infectious Disease History: Reports: Chicken Pox, MRSA, Novel Coronavirus (07/03/20), Shingles - Past Surgical History HEENT Surgical History: Reports: Cataract Surgery GI Surgical History: Reports: Appendectomy, Other (See Below) Other GI Surgeries/Procedures: stomach ulcers taken out Endocrine Surgical History: Reports: None Musculoskeletal Surgical History: Reports: Knee Replacement, Other (See Below), Shoulder Replacement, Shoulder Surgery Other Musculoskeletal Surgeries/Procedures:: Elbow, Neck, Back Social & Family History - Family History Cardiac: Reports: [place] Respiratory: Reports: Asthma OBGYN: Reports: Musculoskeletal: Reports: Osteoporosis Oncologic: Reports: Bladder - Tobacco Use Tobacco Use Status *Q: Never Tobacco User - Caffeine Use Caffeine Use: Reports: None Caffeine Use Comment: not often for all - Recreational Drug Use Recreational Drug Use: No ED ROS GENERAL - Review of Systems Review Of Systems: Comprehensive ROS is negative, except as noted in HPI. ED EXAM, GENERAL - Physical Exam Exam: See Below Exam Limited By: No Limitations General Appearance: Alert, WD/WN, No Apparent Distress Respiratory/Chest: No Respiratory Distress, Lungs Clear, Normal Breath Sounds, No Accessory Muscle Use, Chest Non-Tender Cardiovascular: Normal Peripheral Pulses, Regular Rate, Rhythm, No Edema Peripheral Pulses: 2+: Radial (L), Radial (R) Extremities: Normal Inspection, Normal Range of Motion Neurological: Alert, Oriented, Normal Cognition, No Motor/Sensory Deficits Psychiatric: Normal Affect, Normal Mood Skin Exam: Warm, Dry, Intact, Normal Color, No Rash #1 Interpretation EKG Date: 07/07/20 Time: 15:49 Rhythm: NSR Rate (Beats/Min): 81 [place]: Normal P-Wave: Present QRS: Normal ST-T: Elevated (minimal, inferior leads) QT: Normal Comparison: NA - No Prior EKG EKG Interpretation Comments: Reviewed with Dr. Blanco. Course - Vital Signs Last Recorded V/S: Last Vital Signs Temp 96.9 F 07/07/20 15:04 Pulse 83 07/07/20 15:04 Resp 16 07/07/20 15:04 BP 153/80 H 07/07/20 15:04 Pulse Ox 98 07/07/20 15:04 - Orders/Labs/Meds Orders: Active Orders 24 hr Category Date Time Status EKG Documentation Completion [RC] STAT Care 07/07/20 15:24 Active Peripheral IV Care [RC] . DIRECTED Care 07/07/20 15:25 Active Vital Signs [RC] Q15M Care 07/07/20 15:30 Active EPINEPHrine [Adrenalin] Med 07/07/20 15:30 Active 0.3 mg IM ONETIME PRN Famotidine [Pepcid] Med 07/07/20 15:30 Active 20 mg IVPUSH ONETIME PRN Sodium Chloride 0.9% [Saline Flush] Med 07/07/20 15:25 Active 10 ml FLUSH ASDIRECTED PRN Sodium Chloride 0.9% [Saline Flush] Med 07/07/20 15:30 Active 30 ml FLUSH ASDIRECTED diphenhydrAMINE [Benadryl] Med 07/07/20 15:30 Active 50 mg IVPUSH ONETIME PRN methylPREDNISolone Sod Succ [Solu-MEDROL] Med 07/07/20 15:30 Active 125 mg IVPUSH ONETIME PRN Peripheral IV Insertion Adult [OM.PC] Routine Oth 07/07/20 15:25 Ordered Medication Orders Diphenhydramine HCl (Benadryl) 50 mg IVPUSH ONETIME PRN PRN Reason: hypersensitivity reaction Epinephrine HCl (Adrenalin) 0.3 mg IM ONETIME PRN PRN Reason: hypersensitivity reaction Famotidine (Pepcid) 20 mg IVPUSH ONETIME PRN PRN Reason: hypersensitivity reaction Methylprednisolone Sodium Succinate (Solu-Medrol) 125 mg IVPUSH ONETIME PRN PRN Reason: hypersensitivity reaction Sodium Chloride (Saline Flush) 10 ml FLUSH ASDIRECTED PRN PRN Reason: Keep Vein Open Sodium Chloride (Saline Flush) 30 ml FLUSH ASDIRECTED BEATRIZ Labs: Laboratory Tests 07/07/20 07/07/20 07/07/20 Range/Units 15:24 15:44 15:44 WBC 7.54 (3.98-10.04) K/mm3 RBC 4.15 (3.98-5.22) M/mm3 Hgb 12.5 (11.2-15.7) gm/dl Hct 39.1 (34.1-44.9) % MCV 94.2 D (79.4-94.8) fl MCH 30.1 (25.6-32.2) pg MCHC 32.0 L (32.2-35.5) g/dl RDW Std Deviation 43.0 (36.4-46.3) fL Plt Count 307 (182-369) K/mm3 MPV 9.2 L (9.4-12.3) fl Neutrophils % (Manual) 67 H (40-60) % Band Neutrophils % 0 (0-10) % Lymphocytes % (Manual) 23 (20-40) % Atypical Lymphs % 0 % Monocytes % (Manual) 4 (2-10) % Eosinophils % (Manual) 5 (0.7-5.8) % Basophils % (Manual) 1 (0.1-1.2) Platelet Estimate Adequate RBC Morph Comment Normal PT 10.8 (9.7-12.0) SECONDS INR 1.01 APTT 29.0 (21.7-31.4) SECONDS D-Dimer, Quantitative 1.33 H (0.19-0.50) mg/L Sodium (136-145) mEq/L Potassium (3.5-5.1) mEq/L Chloride (98-107) mEq/L Carbon Dioxide (21-32) mEq/L Anion Gap (5-15) BUN (7-18) mg/dL Creatinine (0.55-1.02) mg/dL Est Cr Clr Drug Dosing mL/min Estimated GFR (MDRD) (>60) mL/min BUN/Creatinine Ratio (14-18) Glucose (83-115) mg/dL Calcium (8.5-10.1) mg/dL Magnesium (1.8-2.4) mg/dl Ferritin (8-252) ng/ml Total Bilirubin (0.2-1.0) mg/dL AST (15-37) U/L ALT (14-59) U/L Alkaline Phosphatase (46-116) U/L Lactate Dehydrogenase (81-234) U/L Troponin I (0.00-0.056) ng/mL C-Reactive Protein <0.2 (<1.0) mg/dL NT-Pro-B Natriuret Pep (0-450) pg/mL Total Protein (6.4-8.2) g/dl Albumin (3.4-5.0) g/dl Globulin gm/dL Albumin/Globulin Ratio (1-2) 07/07/20 07/07/20 07/07/20 Range/Units 15:44 15:44 15:44 WBC (3.98-10.04) K/mm3 RBC (3.98-5.22) M/mm3 Hgb (11.2-15.7) gm/dl Hct (34.1-44.9) % MCV (79.4-94.8) fl MCH (25.6-32.2) pg MCHC (32.2-35.5) g/dl RDW Std Deviation (36.4-46.3) fL Plt Count (182-369) K/mm3 MPV (9.4-12.3) fl Neutrophils % (Manual) (40-60) % Band Neutrophils % (0-10) % Lymphocytes % (Manual) (20-40) % Atypical Lymphs % % Monocytes % (Manual) (2-10) % Eosinophils % (Manual) (0.7-5.8) % Basophils % (Manual) (0.1-1.2) Platelet Estimate RBC Morph Comment PT (9.7-12.0) SECONDS INR APTT (21.7-31.4) SECONDS D-Dimer, Quantitative (0.19-0.50) mg/L Sodium 136 (136-145) mEq/L Potassium 4.0 (3.5-5.1) mEq/L Chloride 97 L (98-107) mEq/L Carbon Dioxide 30 (21-32) mEq/L Anion Gap 13.0 (5-15) BUN 10 (7-18) mg/dL Creatinine 1.2 H (0.55-1.02) mg/dL Est Cr Clr Drug Dosing 35.15 mL/min Estimated GFR (MDRD) 43 (>60) mL/min BUN/Creatinine Ratio 8.3 L (14-18) Glucose 92 (83-115) mg/dL Calcium 9.6 (8.5-10.1) mg/dL Magnesium 1.9 (1.8-2.4) mg/dl Ferritin 97 (8-252) ng/ml Total Bilirubin 0.8 (0.2-1.0) mg/dL AST 28 (15-37) U/L ALT 20 (14-59) U/L Alkaline Phosphatase 82 (46-116) U/L Lactate Dehydrogenase 233 (81-234) U/L Troponin I < 0.017 (0.00-0.056) ng/mL C-Reactive Protein (<1.0) mg/dL NT-Pro-B Natriuret Pep 332 (0-450) pg/mL Total Protein 7.5 (6.4-8.2) g/dl Albumin 3.7 (3.4-5.0) g/dl Globulin 3.8 gm/dL Albumin/Globulin Ratio 1.0 (1-2) Meds: Medications Generic Name Dose Route Start Last Admin Trade Name Freq PRN Reason Stop Dose Admin Diphenhydramine HCl 50 mg 07/07/20 15:30 Benadryl IVPUSH ONETIME PRN hypersensitivity reaction Epinephrine HCl 0.3 mg 07/07/20 15:30 Adrenalin IM ONETIME PRN hypersensitivity reaction Famotidine 20 mg 07/07/20 15:30 Pepcid IVPUSH ONETIME PRN hypersensitivity reaction Methylprednisolone Sodium Succinate 125 mg 07/07/20 15:30 Solu-Medrol IVPUSH ONETIME PRN hypersensitivity reaction Sodium Chloride 10 ml 07/07/20 15:25 Saline Flush FLUSH ASDIRECTED PRN Keep Vein Open Sodium Chloride 30 ml 07/07/20 15:30 Saline Flush FLUSH ASDIRECTED BEATRIZ Discontinued Medications Generic Name Dose Route Start Last Admin Trade Name Freq PRN Reason Stop Dose Admin Non-Formulary Medication 1,200 250 mls @ 250 mls/hr 07/07/20 15:30 07/07/20 16:03 mg/ Non-Formulary Medication IV 07/07/20 16:29 250 mls/hr 1,200 mg/ Sodium Chloride ONETIME ONE Administration - Re-Assessments/Exams Free Text/Narrative Re-Assessment/Exam: 07/07/20 15:34 Patient presents to the ED for her ongoing COVID-19 symptoms. As far as I can tell the patient has been sick for roughly 7 days. I spoke with the patient to provide information about Regeneron treatment. I offered them the "Patient and caregiver EU Regeneron fact sheet" to read and review. I stated that the drug has been approved by an emergency use authorization (EUA) process and has not been fully FDA reviewed or approved. The patient meets the EUA requirements. I discussed there are other potential treatment options that are currently not FDA approved to treat COVID-19. I did offer an opportunity to ask questions and all questions were answered. Patient voiced understanding and agreed to proceed with the treatment. We will also get baseline labs, chest x-ray for further evaluation of the patient's COVID-19 disease. 07/07/20 16:50 Patient's labs are essentially okay. D-dimer is 1.33 she is slightly dehydrated, CRP and troponin are okay. Patient is tolerating her treatment well. Chest x- ray does demonstrate slight density within the right upper chest, medial right chest as well as the left lower chest, left lower chest findings show slight irregular margins and a noncontrast chest CT is recommended. Other densities as noted above could represent mild areas of pneumonia although the chest CT would confirm. Again the patient does have COVID-19, I suspect the chest x-ray findings are due to COVID-19, we will will recommend her getting a CT once her Covid has resolved for further evaluation. Departure - Departure Time of Disposition: 17:30 Disposition: Home, Self-Care 01 Condition: Good Clinical Impression: COVID-19 - Discharge Information *PRESCRIPTION DRUG MONITORING PROGRAM REVIEWED*: No *COPY OF PRESCRIPTION DRUG MONITORING REPORT IN PATIENT TIMBO: No Instructions: 10 Things You Can Do to Manage Your COVID-19 Symptoms at Home - CDC Referrals: Tracy Perez MD [Primary Care Provider] - Forms: ED Department Discharge Additional Instructions: You were seen in the ER today for ongoing and/or worsening respiratory symptoms. Your chest x-ray showed slight signs of viral pneumonia compatible with COVID- 19. Your oxygen levels were great at 96-97% on room air. Laboratory evaluation was somewhat abnormal, but in line with ongoing COVID-19 infection. our radiologist does suggest getting a noncontrast chest CT for further evaluation of your chest however I would recommend doing this when your COVID-19 symptoms have resolved; or at least getting a repeat chest x-ray for evaluation when you are feeling better. Please try to increase your oral fluid intake, and eat multiple small meals throughout the day, to keep yourself healthy. You need to keep yourself nourished in order to fight off this disease. You can try a liquid diet like gatorade/powerade as well to get your electrolytes. You may take 500 mg Tylenol every hours 6 hours for pain/fever relief. Do not exceed 4000 mg Tylenol in a 24-hour time span. However, running a fever is your body's natural response to illness, and it allows the body to develop antibodies to disease, we are recommending trying to limit the use of Tylenol as much as possible to allow your body's natural immune response. Recommend you obtain a pulse oximeter and monitor your oxygen levels at home, you should place the monitor on your finger, and sit in a calm, quiet position for a few minutes and then record the number that is on the screen. If this consistently below 90% on room air without movement, this would be cause for concern to come back to the hospital for further management of your COVID-19 disease. You may get 1 of these monitors at [facility] services, you can call [phone], and they should be able to provide you with 1 of these via curbside delivery. Sepsis Event Note (ED) - Evaluation Sepsis Screening Result: No Definite Risk - Focused Exam Vital Signs: Vital Signs Temp Pulse Resp BP Pulse Ox 07/07/20 15:04 96.9 F 83 16 153/80 H 98 - My Orders Last 24 Hours: My Active Orders 07/07/20 15:24 EKG Documentation Completion [RC] STAT 07/07/20 15:25 Peripheral IV Care [RC] . DIRECTED Sodium Chloride 0.9% [Saline Flush] 10 ml FLUSH ASDIRECTED PRN Peripheral IV Insertion Adult [OM.PC] Routine 07/07/20 15:30 Vital Signs [RC] Q15M EPINEPHrine [Adrenalin] 0.3 mg IM ONETIME PRN Famotidine [Pepcid] 20 mg IVPUSH ONETIME PRN Sodium Chloride 0.9% [Saline Flush] 30 ml FLUSH ASDIRECTED diphenhydrAMINE [Benadryl] 50 mg IVPUSH ONETIME PRN methylPREDNISolone Sod Succ [Solu-MEDROL] 125 mg IVPUSH ONETIME PRN - Assessment/Plan Last 24 Hours: My Active Orders 07/07/20 15:24 EKG Documentation Completion [RC] STAT 07/07/20 15:25 Peripheral IV Care [RC] . DIRECTED Sodium Chloride 0.9% [Saline Flush] 10 ml FLUSH ASDIRECTED PRN Peripheral IV Insertion Adult [OM.PC] Routine 07/07/20 15:30 Vital Signs [RC] Q15M EPINEPHrine [Adrenalin] 0.3 mg IM ONETIME PRN Famotidine [Pepcid] 20 mg IVPUSH ONETIME PRN Sodium Chloride 0.9% [Saline Flush] 30 ml FLUSH ASDIRECTED diphenhydrAMINE [Benadryl] 50 mg IVPUSH ONETIME PRN methylPREDNISolone Sod Succ [Solu-MEDROL] 125 mg IVPUSH ONETIME PRN
--- NOTE | 2020-07-07 16:24 | CR ---
Chest: Portable view of the chest was obtained. Comparison: Prior chest x-ray of 06/28/17. Heart size and mediastinum are normal. Slight density within the right upper chest is seen. Slight density within the left lower chest is seen. Left lower chest shows slight irregular densities and chest CT could be obtained. Minimal density within the medial right lung base is seen. Bony structures show nothing acute. Impression: 1. Slight density within the right upper chest, medial right chest as well as within the left lower chest. Left lower chest findings show slight irregular margins and noncontrast chest CT is recommended. 2. Other densities as noted above could represent mild areas of pneumonia although chest CT will confirm. 3. Other findings as noted above. Diagnostic code #3
== END 2020-07-07 18:15 | disposition home or self-care (01) ==
LOC: JD.ED 14:20
DX: U07.1 COVID-19 (principal); E03.9 Hypothyroidism, unspecified; G62.9 Polyneuropathy, unspecified; Z79.899 Other long term (current) drug therapy; R06.02 Shortness of breath
CPT/HCPCS: 36415; 71045; 80053; 82728; 83615; 83735; 83880; 84484; 85007; 85027; 85379; 85610; 85730; 86140; 93005; 99285; J7050; M0243; Q0243; 93010; 99284

== ENCOUNTER 2021-02-11 11:22 | Emergency (ER) | payer MEDICARE, OTHER ==
[2021-02-11] MEDS ORDERED: Sodium Chloride 0.9% 10 ML Syringe FLUSH PRN (12:36)
--- NOTE | 2021-02-11 13:45 | CR ---
Chest: Portable view of the chest was obtained. Comparison: Prior chest x-ray of 07/07/20. Slight blunting of the right lateral costophrenic angle is seen which appears stable. Lungs are clear with no acute parenchymal change. Heart size is normal. Upper mediastinum is within normal limits. Bilateral shoulder prostheses are noted. Scoliosis is noted within the spine. Impression: 1. Stable findings as noted above. 2. Nothing acute is seen on portable chest x-ray. Diagnostic code #2
[2021-02-11] MEDS ORDERED: Iopamidol 755 Mg/ML 100 ML Bottle IVPUSH ONE (14:08)
[2021-02-11] MEDS ORDERED: Sodium Chloride 0.9% 10 ML Syringe FLUSH ONE (14:08)
[2021-02-11] MEDS ORDERED: Sodium Chloride 0.9% 1,000 ML IV STA (14:14)
[2021-02-11] MEDS ORDERED: Sodium Chloride 0.9% 100 ML IV SCH (14:15)
--- NOTE | 2021-02-11 15:08 | CT ---
CT chest Technique: Multiple axial sections through the chest were obtained. Intravenous contrast was utilized. Study has been performed as a pulmonary angiogram protocol. Comparison: No prior chest CT study is available, prior chest x-ray performed earlier on the same day (12:38 PM). Findings: Pulmonary arteries show no filling defects to indicate pulmonary embolism. Thoracic aorta shows atherosclerotic calcification with no aneurysm. Mediastinum shows scattered small lymph nodes believed to be within normal limits. No axillary adenopathy is seen. Calcification is noted within the dome of the right lobe of the liver believed to be incidental. Calcification is seen within the spleen which is also felt to be incidental. Two cysts are seen anteriorly within the liver with largest located within the left lobe measuring 1.7 cm. Cyst is noted within the left kidney measuring approximately 1.6 cm. Second cyst is noted within the left kidney measuring 0.9 cm. Lung window settings were obtained. Mild areas of fibrosis are scattered within both lungs. Lungs show no acute parenchymal change. No pleural effusions are seen. Bilateral shoulder prostheses are noted. Slight scoliosis is noted within the spine with mild scattered degenerative change. Impression: 1. No findings of pulmonary embolism. 2. Findings within the abdomen which are felt to be incidental. 3. 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 4. Other findings which are believed to be incidental as noted above. 5. Nothing acute is appreciated on CT study of the chest. Diagnostic code #2
--- NOTE | 2021-02-11 15:48 | EDM.PDOC ---
ED HPI GENERAL MEDICAL PROBLEM - General Chief Complaint: Respiratory Problem Stated Complaint: TIRED SOB Time Seen by Provider: 02/11/21 12:28 Source of Information: Reports: Patient, RN Notes Reviewed History Limitations: Reports: No Limitations - History of Present Illness INITIAL COMMENTS - FREE TEXT/NARRATIVE: Patient is a 81-year-old female presenting to the emergency department with complaints of a 1 week history of fatigue and shortness of breath with exertion. She denies any other symptoms associated. She is had no cough or shortness of breath at rest. Denies chest pain. Has had no fever or chills. Denies nausea vomiting or diarrhea. She is had no dysuria. Denies any chronic lung or heart conditions. She did not receive Covid vaccination. After ambulating back to the room, patient's oxygen saturation was found to be slightly low at 87% on room air. She was put on oxygen at 2 L but quickly titrated off. She is currently saturating 94% on room air. Vital signs are otherwise normal. - Related Data Allergies Allergy/AdvReac Type Severity Reaction Status Date / Time No Known Allergies Allergy Verified 02/11/21 12:21 Home Meds: Home Meds Gabapentin [Neurontin] 600 mg PO TID 05/04/17 [History] PARoxetine HCL [Paroxetine HCl] 40 mg PO BEDTIME 05/04/17 [History] Rosuvastatin [Crestor] 10 mg PO BEDTIME 05/04/17 [History] Levothyroxine [Synthroid] 100 mcg PO DAILY 09/25/18 [History] Metoprolol Succinate [Toprol XL] 25 mg PO DAILY 09/25/18 [History] Pantoprazole Sodium [Protonix] 40 mg PO DAILY 09/25/18 [History] Pramipexole [Mirapex] 0.5 mg PO BEDTIME 09/25/18 [History] Past Medical History HEENT History: Reports: Cataract Gastrointestinal History: Reports: None 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 History: Reports: Other MAGAZINE DESIGNER History: hysterectomy Musculoskeletal History: Reports: Osteoarthritis Neurological History: Reports: Neuropathy, Peripheral, TIA Endocrine/Metabolic History: Reports: Hypothyroidism - Infectious Disease History Infectious Disease History: Reports: Chicken Pox, MRSA, Novel Coronavirus, Shingles - Past Surgical History HEENT Surgical History: Reports: Cataract Surgery GI Surgical History: Reports: Appendectomy, Other (See Below) Other GI Surgeries/Procedures: stomach ulcers taken out Endocrine Surgical History: Reports: None Musculoskeletal Surgical History: Reports: Knee Replacement, Other (See Below), Shoulder Replacement, Shoulder Surgery Other Musculoskeletal Surgeries/Procedures:: Elbow, Neck, Back Social & Family History - Family History Cardiac: Reports: CT Respiratory: Reports: Asthma OBGYN: Reports: Musculoskeletal: Reports: Osteoporosis Oncologic: Reports: Bladder - Tobacco Use Tobacco Use Status *Q: Never Tobacco User - Caffeine Use Caffeine Use: Reports: None Caffeine Use Comment: not often for all - Recreational Drug Use Recreational Drug Use: No ED ROS GENERAL - Review of Systems Review Of Systems: See Below Constitutional: Reports: Fatigue. Denies: Fever, Chills, Decreased Appetite HEENT: Reports: No Symptoms Respiratory: Reports: Shortness of Breath (With exertion). Denies: Wheezing, Pleuritic Chest Pain, Cough Cardiovascular: Reports: Dyspnea on Exertion. Denies: Chest Pain Endocrine: Reports: No Symptoms GI/Abdominal: Reports: No Symptoms : Reports: No Symptoms Musculoskeletal: Reports: No Symptoms Skin: Reports: No Symptoms Neurological: Reports: No Symptoms Psychiatric: Reports: No Symptoms Hematologic/Lymphatic: Reports: No Symptoms Immunologic: Reports: No Symptoms ED EXAM, GENERAL - Physical Exam Exam: See Below Exam Limited By: No Limitations General Appearance: Alert, WD/WN, No Apparent Distress Eye Exam: Bilateral Eye: PERRL Head: Atraumatic, Normocephalic Neck: Normal Inspection, Supple, Non-Tender, Full Range of Motion Respiratory/Chest: No Respiratory Distress, Lungs Clear, Normal Breath Sounds, No Accessory Muscle Use, Chest Non-Tender Cardiovascular: Normal Peripheral Pulses, Regular Rate, Rhythm, No Edema, No Gallop, No JVD, No Murmur, No Rub GI/Abdominal: Normal Bowel Sounds, Soft, Non-Tender, No Organomegaly, No Distention, No Abnormal Bruit, No Mass Extremities: Normal Inspection, Normal Range of Motion, Non-Tender, Normal Capillary Refill, No Pedal Edema Neurological: Alert, Oriented, CN II-XII Intact, Normal Cognition, Normal Gait, Normal Reflexes, No Motor/Sensory Deficits Psychiatric: Normal Affect, Normal Mood Skin Exam: Warm, Dry, Intact, Normal Color, No Rash #1 Interpretation EKG Date: 02/11/21 Time: 12:50 Rhythm: NSR Rate (Beats/Min): 66 [place]: Normal P-Wave: Present QRS: Normal ST-T: Normal QT: Normal Course - Vital Signs Last Recorded V/S: Last Vital Signs Temp 97 F 02/11/21 12:16 Pulse 70 02/11/21 16:18 Resp 16 02/11/21 16:18 BP 119/62 02/11/21 16:18 Pulse Ox 91 L 02/11/21 16:18 - Orders/Labs/Meds Labs: Laboratory Tests 02/11/21 02/11/21 02/11/21 Range/Units 12:30 12:58 12:58 WBC 5.96 (3.98-10.04) K/mm3 RBC 3.59 L (3.98-5.22) M/mm3 Hgb 11.5 (11.2-15.7) gm/dl Hct 35.4 (34.1-44.9) % MCV 98.6 H (79.4-94.8) fl MCH 32.0 (25.6-32.2) pg MCHC 32.5 (32.2-35.5) g/dl RDW Std Deviation 47.8 H (36.4-46.3) fL Plt Count 214 (182-369) K/mm3 MPV 9.0 L (9.4-12.3) fl Neut % (Auto) 58.1 (34.0-71.1) % Lymph % (Auto) 15.4 L (19.3-51.7) % [place] % (Auto) 18.8 H (4.7-12.5) % Eos % (Auto) 7.0 H (0.7-5.8) Baso % (Auto) 0.5 (0.1-1.2) % Neut # (Auto) 3.46 (1.56-6.13) K/mm3 Lymph # (Auto) 0.92 L (1.18-3.74) K/mm3 [place] # (Auto) 1.12 H (0.24-0.36) K/mm3 Eos # (Auto) 0.42 H (0.04-0.36) K/mm3 Baso # (Auto) 0.03 (0.01-0.08) K/mm3 D-Dimer, Quantitative (0.19-0.50) mg/L Sodium 139 (136-145) mEq/L Potassium 4.7 (3.5-5.1) mEq/L Chloride 104 (98-107) mEq/L Carbon Dioxide 26 (21-32) mEq/L Anion Gap 13.7 (5-15) BUN 21 H (7-18) mg/dL Creatinine 1.2 H (0.55-1.02) mg/dL Est Cr Clr Drug Dosing 34.54 mL/min Estimated GFR (MDRD) 43 (>60) mL/min BUN/Creatinine Ratio 17.5 (14-18) Glucose 86 (70-99) mg/dL Calcium 8.8 (8.5-10.1) mg/dL Total Bilirubin 0.4 (0.2-1.0) mg/dL AST 27 (15-37) U/L ALT 26 (14-59) U/L Alkaline Phosphatase 62 (46-116) U/L Troponin I < 0.017 (0.00-0.056) ng/mL C-Reactive Protein 0.5 (<1.0) mg/dL NT-Pro-B Natriuret Pep (0-450) pg/mL Total Protein 7.0 (6.4-8.2) g/dl Albumin 3.4 (3.4-5.0) g/dl Globulin 3.6 gm/dL Albumin/Globulin Ratio 0.9 L (1-2) Urine Color (Yellow) Urine Appearance (Clear) Urine pH (5.0-8.0) Ur Specific [place] (1.005-1.030) Urine Protein (Negative) Urine Glucose (UA) (Negative) Urine Ketones (Negative) Urine Occult Blood (Negative) Urine Nitrite (Negative) Urine Bilirubin (Negative) Urine Urobilinogen (0.2-1.0) Ur Leukocyte Esterase (Negative) Urine RBC (0-5) /hpf Urine WBC (0-5) /hpf Ur Squamous Epith Cells (0-5) /hpf Urine Bacteria (FEW) /hpf Urine Mucus (FEW) /hpf SARS-CoV-2 RNA (ELEANOR) Negative (NEGATIVE) 02/11/21 02/11/21 02/11/21 Range/Units 12:58 12:58 14:10 WBC (3.98-10.04) K/mm3 RBC (3.98-5.22) M/mm3 Hgb (11.2-15.7) gm/dl Hct (34.1-44.9) % MCV (79.4-94.8) fl MCH (25.6-32.2) pg MCHC (32.2-35.5) g/dl RDW Std Deviation (36.4-46.3) fL Plt Count (182-369) K/mm3 MPV (9.4-12.3) fl Neut % (Auto) (34.0-71.1) % Lymph % (Auto) (19.3-51.7) % [place] % (Auto) (4.7-12.5) % Eos % (Auto) (0.7-5.8) Baso % (Auto) (0.1-1.2) % Neut # (Auto) (1.56-6.13) K/mm3 Lymph # (Auto) (1.18-3.74) K/mm3 [place] # (Auto) (0.24-0.36) K/mm3 Eos # (Auto) (0.04-0.36) K/mm3 Baso # (Auto) (0.01-0.08) K/mm3 D-Dimer, Quantitative 1.01 H (0.19-0.50) mg/L Sodium (136-145) mEq/L Potassium (3.5-5.1) mEq/L Chloride (98-107) mEq/L Carbon Dioxide (21-32) mEq/L Anion Gap (5-15) BUN (7-18) mg/dL Creatinine (0.55-1.02) mg/dL Est Cr Clr Drug Dosing mL/min Estimated GFR (MDRD) (>60) mL/min BUN/Creatinine Ratio (14-18) Glucose (70-99) mg/dL Calcium (8.5-10.1) mg/dL Total Bilirubin (0.2-1.0) mg/dL AST (15-37) U/L ALT (14-59) U/L Alkaline Phosphatase (46-116) U/L Troponin I (0.00-0.056) ng/mL C-Reactive Protein (<1.0) mg/dL NT-Pro-B Natriuret Pep 476 H (0-450) pg/mL Total Protein (6.4-8.2) g/dl Albumin (3.4-5.0) g/dl Globulin gm/dL Albumin/Globulin Ratio (1-2) Urine Color Yellow (Yellow) Urine Appearance Clear (Clear) Urine pH 6.0 (5.0-8.0) Ur Specific [place] 1.020 (1.005-1.030) Urine Protein Negative (Negative) Urine Glucose (UA) Negative (Negative) Urine Ketones Negative (Negative) Urine Occult Blood Trace-lysed H (Negative) Urine Nitrite Negative (Negative) Urine Bilirubin Negative (Negative) Urine Urobilinogen 0.2 (0.2-1.0) Ur Leukocyte Esterase Negative (Negative) Urine RBC 10-20 H (0-5) /hpf Urine WBC 0-5 (0-5) /hpf Ur Squamous Epith Cells 0-5 (0-5) /hpf Urine Bacteria Many H (FEW) /hpf Urine Mucus Not seen (FEW) /hpf SARS-CoV-2 RNA (ELEANOR) (NEGATIVE) Meds: Medications Discontinued Medications Generic Name Dose Route Start Last Admin Trade Name Freq PRN Reason Stop Dose Admin Sodium Chloride 100 mls @ 60 mls/hr 02/11/21 14:15 02/11/21 14:28 Normal Saline IV 60 mls/hr ASDIRECTED BEATRIZ Administration Sodium Chloride 1,000 mls @ 150 mls/hr 02/11/21 14:14 02/11/21 15:00 Normal Saline IV 02/11/21 20:53 150 mls/hr NOW STA Administration Iopamidol 100 ml 02/11/21 14:08 02/11/21 14:27 Iopamidol 755 Mg/Ml 100 Ml Bottle IVPUSH 02/11/21 14:09 100 ml ONETIME ONE Administration Sodium Chloride 10 ml 02/11/21 12:36 02/11/21 12:42 Sodium Chloride 0.9% 10 Ml Syringe FLUSH 10 ml ASDIRECTED PRN Administration Keep Vein Open Sodium Chloride 10 ml 02/11/21 14:08 02/11/21 14:28 Sodium Chloride 0.9% 10 Ml Syringe FLUSH 02/11/21 14:09 10 ml ONETIME ONE Administration - Re-Assessments/Exams Free Text/Narrative Re-Assessment/Exam: Patient is an 81-year-old female presenting to the emergency department with complaints of 1 week history of fatigue and shortness of breath with exertion. Her ambulating to the room, initial oxygen saturation was 87% on room air, however she quickly rebounded. She is currently saturating 94% on room air. Exam is unremarkable. Lung sounds are clear. I have ordered blood work, urinalysis, chest x-ray, EKG. 02/11/21 1400 Hematology is significant for D-dimer minimally elevated 1.01, BUN 21, creatinine 1.2, proBNP 476. Troponin is undetectably low. Electrolytes are normal. Urinalysis shows no evidence of infection. Covid is negative. I have ordered CT angiogram of the chest to rule out PE. 02/11/21 15:48 CT angiogram of the chest impression as follows: 1. No findings of pulmonary embolism. 2. Findings within the abdomen which were found to be incidental. 3. 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 4. Other findings which are believed to be incidental as noted above. 5. Nothing acute is appreciated on CT study of the chest. Results discussed with patient. She was not previously aware of fibrosis in her lungs. This may be contributing to her shortness of breath with exertion. Recommend that she follow-up with her primary care provider at the next available visit for ongoing management. Discussed return precautions. Discharge instructions as documented. Departure - Departure Time of Disposition: 16:05 Disposition: Home, Self-Care 01 Condition: Good Clinical Impression: Shortness of breath Fatigue Qualifiers: Fatigue type: unspecified Qualified Code(s): R53.83 - Other fatigue - Discharge Information *PRESCRIPTION DRUG MONITORING PROGRAM REVIEWED*: No *COPY OF PRESCRIPTION DRUG MONITORING REPORT IN PATIENT TIMBO: No Instructions: Shortness of Breath, Adult, [id number] Referrals: Tracy Perez MD [Primary Care Provider] - Forms: ED Department Discharge Additional Instructions: You were seen in the emergency department today for fatigue and shortness of breath with exertion. Work-up included blood work, urinalysis, EKG, chest x- ray, and CT angiogram of your chest. Work-up showed that you do have some fibrosis within your lungs but was otherwise normal. I would recommend following up with your primary care provider at her next available visit. If you should experience any new or worsening symptoms, please not hesitate to r eturn to the emergency department for reevaluation. Sepsis Event Note (ED) - Evaluation Sepsis Screening Result: No Definite Risk
== END 2021-02-11 16:20 | disposition home or self-care (01) ==
LOC: JD.ED 11:22
DX: R06.02 Shortness of breath (principal); R53.83 Other fatigue; E03.9 Hypothyroidism, unspecified; Z79.899 Other long term (current) drug therapy; Z86.16 Personal history of COVID-19; Z20.822 Contact with and (suspected) exposure to COVID-19
CPT/HCPCS: 36415; 71045; 71275; 80053; 81001; 83880; 84484; 85025; 85379; 86140; 93005; 99285; J7030; Q9967; U0002; 93010; 99284

== ENCOUNTER 2023-03-14 12:15 | Emergency (ER) | payer MEDICARE, OTHER ==
[2023-03-14] MEDS ORDERED: Sodium Chloride 0.9% 10 ML Syringe FLUSH PRN (12:46)
[2023-03-14] MEDS ORDERED: Sodium Chloride 0.9% 1,000 ML IV SCH (13:30)
[2023-03-14 13:42] LABS: BASOPHILS ABSOLUTE AUTO 0.1 K/mm3 (0.0-0.2); BASOPHILS PERCENT AUTO 0.7 % (0.0-1.0); EOSINOPHILS ABSOLUTE AUTO 0.2 K/mm3 (0.0-0.4); EOSINOPHILS PERCENT AUTO 2.7 % (0.0-6.0); IMMATURE GRAN PERCENT AUTO 1.4 % (0.0-0.4); LYMPHOCYTES ABSOLUTE AUTO 1.2 K/mm3 (1.0-4.8); LYMPHOCYTES PERCENT AUTO 16.4 % (24.0-44.0); MEAN CORPUSCULAR HEMOGLOBIN 32.7 pg (28.0-32.0); MEAN CORPUSCULAR HGB CONC 33.3 g/dl (32.0-36.0); MEAN CORPUSCULAR VOLUME 98.1 fl (83.0-99.0); MEAN PLATELET VOLUME 9.4 fl (9.4-12.3); MONOCYTES ABSOLUTE AUTO 0.8 K/mm3 (0.0-0.8); MONOCYTES PERCENT AUTO 11.4 % (0.0-8.0); NEUTROPHILS ABSOLUTE AUTO 4.7 K/mm3 (1.8-7.7); NEUTROPHILS PERCENT AUTO 67.4 % (41.0-71.0); PLATELET COUNT,PLT 264 K/mm3 (150-400); RED BLOOD CELL COUNT 4.28 M/mm3 (4.10-5.30)
[2023-03-14 14:08] LABS: APPEARANCE,URINE SLT CLOUDY (Clear); BILIRUBIN,URINE 1+ (Negative); COLOR,URINE YELLOW (Yellow); GLUCOSE,URINE NEGATIVE (Negative); KETONES,URINE TRACE (Negative); LEUKOCYTE ESTERASE,URINE TRACE (Negative); NITRITE,URINE NEGATIVE (Negative); OCCULT BLOOD,URINE NEGATIVE (Negative); PH,URINE 5.5 (5.0-8.0); PROTEIN,URINE NEGATIVE (Negative); UROBILINOGEN,URINE 0.2 (0.2-1.0)
[2023-03-14 14:14] LABS: A/G RATIO 1.1 (1-2); ALANINE AMINOTRANSFERASE,ALT 21 U/L (14-59); ALBUMIN 4.1 g/dl (3.4-5.0); ALKALINE PHOSPHATASE 73 U/L (46-116); ANION GAP 17.1 (5-15); ASPARTATE AMNIOTRANSFERASE,AST 28 U/L (15-37); BILIRUBIN TOTAL 0.6 mg/dL (0.2-1.0); BLOOD UREA NITROGEN,BUN 26 mg/dL (7-18); BUN/CREATININE RATIO 21.7 (14-18); C-REACTIVE PROTEIN <0.2 mg/dL (<1.0); CALCIUM 9.8 mg/dL (8.5-10.1); CARBON DIOXIDE,CO2 22 mEq/L (21-32); CHLORIDE,CL 104 mEq/L (98-107); CREATININE 1.2 mg/dL (0.55-1.02); EST CRCL DRUG DOSING (CG) 33.33 mL/min; ESTIMATED GFR 44 mL/min (>60); GLUCOSE RANDOM 100 mg/dL (70-99); POTASSIUM,K 4.1 mEq/L (3.5-5.1); PROTEIN TOTAL,TP 7.9 g/dl (6.4-8.2); SODIUM,NA 139 mEq/L (136-145); TROPONIN I HIGH SENSITIVITY 7 pg/mL (<=51)
[2023-03-14 14:16] LABS: BACTERIA,URINE FEW /hpf (FEW); EPITHELIAL CELLS,URINE 0-5 /hpf (0-5); MUCUS,URINE RARE /hpf (FEW); RBC,URINE 0-5 /hpf (0-5)
[2023-03-14 14:36] LABS: CORONAVIRUS COVID-19 NAA NEGATIVE (NEGATIVE); INFLUENZA A NAA NEGATIVE (NEGATIVE)
[2023-03-14] MEDS ORDERED: cefTRIAXone 2 GM in Sodium Chloride 0.9% 100 ML IV ONE (15:43)
== END 2023-03-14 17:15 | disposition home or self-care (01) ==
LOC: JD.ED 12:15
DX: E86.0 Dehydration (principal); N30.00 Acute cystitis without hematuria; Z79.899 Other long term (current) drug therapy; Z86.16 Personal history of COVID-19; Z90.49 Acquired absence of other specified parts of digestive tract; Z20.822 Contact with and (suspected) exposure to COVID-19
CPT/HCPCS: 0240U; 36415; 71045; 80053; 81001; 84443; 84484; 85025; 86140; 87086; 93005; 96361; 96365; 99285; J0696; J3490; J7030; 87088; 87186

== ENCOUNTER 2023-12-13 16:20 | Inpatient (IN) | payer MEDICARE, OTHER ==
[2023-12-13 17:51] LABS: BASOPHILS ABSOLUTE AUTO 0.1 K/mm3 (0.0-0.2); BASOPHILS PERCENT AUTO 0.4 % (0.0-1.0); EOSINOPHILS ABSOLUTE AUTO 0.3 K/mm3 (0.0-0.4); EOSINOPHILS PERCENT AUTO 2.1 % (0.0-6.0); HEMATOCRIT 27.5 % (37.0-47.0); HEMOGLOBIN 8.8 gm/dl (12.0-16.0); IMMATURE GRAN ABSOLUTE AUTO 0.06 K/mm3 (0.00-0.05); IMMATURE GRAN PERCENT AUTO 0.4 % (0.0-0.4); LYMPHOCYTES ABSOLUTE AUTO 1.2 K/mm3 (1.0-4.8); LYMPHOCYTES PERCENT AUTO 8.6 % (24.0-44.0); MEAN CORPUSCULAR HEMOGLOBIN 32.5 pg (28.0-32.0); MEAN CORPUSCULAR VOLUME 101.5 fl (83.0-99.0); MONOCYTES ABSOLUTE AUTO 0.9 K/mm3 (0.0-0.8); MONOCYTES PERCENT AUTO 6.3 % (0.0-8.0); NEUTROPHILS PERCENT AUTO 82.2 % (41.0-71.0); PLATELET COUNT,PLT 401 K/mm3 (150-400); RED BLOOD CELL COUNT 2.71 M/mm3 (4.10-5.30); WHITE BLOOD CELL COUNT,WBC 13.43 K/mm3 (3.9-11.3)
[2023-12-13] MEDS: Sodium Chloride 0.9% 10 ML Syringe FLUSH PRN (18:01)
[2023-12-13 18:18] LABS: A/G RATIO 0.8 (1-2); ALANINE AMINOTRANSFERASE,ALT 21 U/L (14-59); ALBUMIN 2.9 g/dl (3.4-5.0); ALKALINE PHOSPHATASE 77 U/L (46-116); ANION GAP 11.7 (5-15); ASPARTATE AMNIOTRANSFERASE,AST 29 U/L (15-37); BILIRUBIN TOTAL 0.3 mg/dL (0.2-1.0); BLOOD UREA NITROGEN,BUN 20 mg/dL (7-18); BUN/CREATININE RATIO 18.2 (14-18); CALCIUM 8.6 mg/dL (8.5-10.1); CARBON DIOXIDE,CO2 27 mEq/L (21-32); CHLORIDE,CL 101 mEq/L (98-107); CREATININE 1.1 mg/dL (0.55-1.02); EST CRCL DRUG DOSING (CG) 36.36 mL/min; ESTIMATED GFR 49 mL/min (>60); GLUCOSE RANDOM 92 mg/dL (70-99); POTASSIUM,K 4.7 mEq/L (3.5-5.1); PROTEIN TOTAL,TP 6.5 g/dl (6.4-8.2); SODIUM,NA 135 mEq/L (136-145)
[2023-12-13 18:25] LABS: TROPONIN I HIGH SENSITIVITY < 4 pg/mL (<=51)
[2023-12-13] MEDS: Sodium Chloride 0.9% 1,000 ML IV STA ×2 (18:33→22:59)
[2023-12-13] MEDS ORDERED: Sodium Chloride 0.9% 10 ML Syringe FLUSH ONE (19:23)
[2023-12-13] MEDS: Iopamidol 612 MG/ML 100 ML Bottle IVPUSH ONE (20:50)
[2023-12-13 21:45] LABS: LACTIC ACID 0.8 mmol/L (0.4-2.0)
[2023-12-13] MEDS ORDERED: Levofloxacin/Dextrose 5%-Water 750 MG in Premix Bag 1 BAG IV SCH (22:00)
[2023-12-13] MEDS: metroNIDAZOLE/Normal Saline 500 MG in Premix Bag 1 BAG IV SCH (22:35)
[2023-12-14] MEDS: Levofloxacin/Dextrose 5%-Water 750 MG in Premix Bag 1 BAG IV ONE (00:20)
[2023-12-14] MEDS: Sodium Chloride 0.9% 250 ML ONE (04:52)
[2023-12-14 04:57] LABS: BASOPHILS ABSOLUTE AUTO 0.1 K/mm3 (0.0-0.2); BASOPHILS PERCENT AUTO 0.6 % (0.0-1.0); EOSINOPHILS ABSOLUTE AUTO 0.3 K/mm3 (0.0-0.4); EOSINOPHILS PERCENT AUTO 3.9 % (0.0-6.0); HEMATOCRIT 31.7 % (37.0-47.0); HEMOGLOBIN 10.2 gm/dl (12.0-16.0); IMMATURE GRAN ABSOLUTE AUTO 0.04 K/mm3 (0.00-0.05); IMMATURE GRAN PERCENT AUTO 0.5 % (0.0-0.4); LYMPHOCYTES PERCENT AUTO 12.4 % (24.0-44.0); MEAN CORPUSCULAR HEMOGLOBIN 31.5 pg (28.0-32.0); MEAN CORPUSCULAR HGB CONC 32.2 g/dl (32.0-36.0); MEAN CORPUSCULAR VOLUME 97.8 fl (83.0-99.0); MEAN PLATELET VOLUME 8.8 fl (9.4-12.3); MONOCYTES ABSOLUTE AUTO 0.8 K/mm3 (0.0-0.8); MONOCYTES PERCENT AUTO 9.8 % (0.0-8.0); NEUTROPHILS PERCENT AUTO 72.8 % (41.0-71.0); PLATELET COUNT,PLT 351 K/mm3 (150-400); RED BLOOD CELL COUNT 3.24 M/mm3 (4.10-5.30); WHITE BLOOD CELL COUNT,WBC 8.17 K/mm3 (3.9-11.3)
[2023-12-14 05:20] LABS: A/G RATIO 0.7 (1-2); ALBUMIN 2.6 g/dl (3.4-5.0); ANION GAP 13.5 (5-15); BILIRUBIN TOTAL 0.4 mg/dL (0.2-1.0); BUN/CREATININE RATIO 15.5 (14-18); CALCIUM 8.2 mg/dL (8.5-10.1); CREATININE 1.1 mg/dL (0.55-1.02); EST CRCL DRUG DOSING (CG) 36.26 mL/min; POTASSIUM,K 4.5 mEq/L (3.5-5.1); PROTEIN TOTAL,TP 6.1 g/dl (6.4-8.2)
[2023-12-14] MEDS ORDERED: Acetaminophen 325 MG Tab PO PRN (09:49)
[2023-12-14] MEDS: Azithromycin 250 MG Tab PO ONE (10:21)
[2023-12-14] MEDS: Lactated Ringers 500 ML IV ONE (10:23)
[2023-12-14] MEDS: ALPRAZolam 0.5 MG Tab PO PRN (15:16)
[2023-12-14] MEDS: Lactated Ringers 1,000 ML IV SCH (15:17)
[2023-12-15] MEDS ORDERED: Levofloxacin/Dextrose 5%-Water 750 MG in Premix Bag 1 BAG IV SCH (21:00)
== END 2023-12-14 16:02 | DRG 379 ==
LOC: JD.ED 16:20 → JD.MS 22:33
PROVIDERS: ADMIT Student in an Organized Health Care Education/Training Program; ATTEND Student in an Organized Health Care Education/Training Program
PROC: 30233N1 Transfusion of Nonautologous Red Blood Cells into Peripheral Vein, Percutaneous Approach (ICD-10-PCS; principal; 2023-12-13)
DX: R10.9 Unspecified abdominal pain (principal); K62.5 Hemorrhage of anus and rectum; E78.5 Hyperlipidemia, unspecified; E03.9 Hypothyroidism, unspecified; F32.A Depression, unspecified; F41.9 Anxiety disorder, unspecified; G62.9 Polyneuropathy, unspecified; K57.30 Diverticulosis of large intestine without perforation or abscess without bleeding; M19.90 Unspecified osteoarthritis, unspecified site; Z86.73 Personal history of transient ischemic attack (TIA), and cerebral infarction without residual deficits; Z98.49 Cataract extraction status, unspecified eye; Z86.16 Personal history of COVID-19; Z90.49 Acquired absence of other specified parts of digestive tract; Z96.659 Presence of unspecified artificial knee joint; Z96.619 Presence of unspecified artificial shoulder joint; Z79.890 Hormone replacement therapy
CPT/HCPCS: 36415; 36430; 74177; 80053; 82272; 83605; 83630; 84484; 85025; 86140; 86850; 86900; 86901; 86922; 87045; 87046 ×3; 87493 ×2; 87899 ×2; J3490; J7030; P9016; Q9967; A9270-GY; J1836; J1956; J7120